=== PATIENT | male | born 1970 | race African-American/Black ===

== ENCOUNTER 2019-06-03 17:41 | Inpatient (IN) | payer OTHER, SELFPAY ==
[2019-06-03] VITALS (7 sets, daily range): BP systolic 147–164; BP diastolic 74–94; PULSE 121–139; RESP 20–23; TEMP 37.4–39.9; O2SAT 97–100; BMI 32.1
--- NOTE | ~2019-06-03 | CT_ITS ---
EXAMINATION: CT abdomen pelvis wo con DATE: 06/03/2019 20:24 INDICATION: Leukocytosis, fever and chills TECHNIQUE: Computed tomography (CT) of the abdomen and pelvis was performed without intravenous contr ast. The dose-length product (DLP) was 504.14 mGy-cm. Automated exposure control and iterative recons truction technique were employed. COMPARISON: None FINDINGS: Minimal dependent atelectasis is present in the lung bases. The heart size is normal. The l iver, spleen, pancreas, gallbladder, and left adrenal gland are normal. There are calcifications of t he right adrenal gland, likely reflecting prior trauma or hemorrhage. There is a 3 mm nonobstructing stone of the left kidney. Nonobstructing stones of the right kidney measure up to 2 mm. No stones are identified in the ureters or bladder. No pathologically enlarged abdominal or pelvic lymph nodes are identified. There is no free intraperitoneal gas or evidence of bowel obstruction. The appendix is n ormal. IMPRESSION: 1. No CT correlate for the patient's symptoms. Reviewed, dictated and finalized at location A. COLOGY SUPERVISOR
--- NOTE | ~2019-06-03 | XR_ITS ---
EXAMINATION: XR chest 2V DATE: 06/03/2019 18:54 INDICATION: Fever and chills TECHNIQUE: AP and lateral views of the chest are obtained. COMPARISON: None available FINDINGS: The lungs are free of acute opacities. There is no pleural effusion or pneumothorax. The ca rdiomediastinal silhouette is normal. The visualized bones and soft tissues are unremarkable. IMPRESSION: 1. No acute cardiopulmonary abnormality. Reviewed, dictated and finalized at location A. TING ENGINEER
[2019-06-03] MEDS: ACETAMINOPHEN 500 MG TABLET 1000 MG PO (18:11)
--- NOTE | 2019-06-03 18:13 | ECG_ITS ---
Measurements Intervals [place] Rate: 136 P: 26 WI: 88 QRS: 41 QRSD: 96 T: 35 QT: 262 QTc: 394 Interpretive Statements SINUS OR ECTOPIC ATRIAL TACHYCARDIA WITH SHORT WI INTERVAL CONSIDER INFERIOR INFARCT, AGE INDETERMINATE ABNORMAL ECG Electronically Signed On 06-03-2019 20:33:39 [employer] by Kem Maddox D.O.
[2019-06-03 18:42] LABS: Basophils Percent Auto 0.2 % (0.2-1.2); Hematocrit 43.1 % (42.0-52.0); Hemoglobin 14.2 g/dL (14.0-18.0); Immature Granulocyte Absolute 0.13 K/mm3 (0.00-0.031); Immature Granulocyte Percent A 0.8 % (0-0.5); Lymphocytes Absolute Auto 1.32 K/mm3 (0.9-3.2); Lymphocytes Percent Auto 8.1 % (18.3-44.2); Mean Corpuscular HGB Conc 32.9 g/dl (32-36); Mean Corpuscular Hemoglobin 30.5 pg (26-34); Mean Corpuscular Volume 92.5 fl (80-100); Mean Platelet Volume 10.4 fl (7.4-10.4); Monocytes Absolute Auto 1.4 K/mm3 (0.1-0.6); Monocytes Percent Auto 8.8 % (2.6-8.5); Neutrophils Absolute Auto 13.4 K/mm3 (1.3-6.7); Neutrophils Percent Auto 82.1 % (45.5-73.1); Platelet Count Result 274 k/mm3 (150-375); Red Blood Count 4.66 M/mm3 (4.6-6.20); Red Cell Distribution Width 12.8 % (11.5-14.5); White Blood Count 16.3 K/mm3 (4.5-10.0)
[2019-06-03 18:53] LABS: Lactic Acid Reflex 1.5 mmol/L (0.7-2.1)
[2019-06-03 19:24] LABS: INR 1.1; Partial Thromboplastin Time 26.4 SECONDS (22.3-36.8); Prothrombin Time 13.5 Seconds (11.1-14.7)
[2019-06-03 19:26] LABS: Alanine Aminotransferase 27 U/L (4-50); Albumin Level 4.6 g/dL (3.5-5.1); Alkaline Phosphatase 45 U/L (38-126); Aspartate Amino Transferase 26 U/L (17-59); Bilirubin,Total 0.3 mg/dL (0.2-1.3); Blood Urea Nitrogen 17 mg/dL (9-20); Calcium 9.6 mg/dL (8.4-10.2); Carbon Dioxide 25 mmol/L (22-30); Chloride 104 mmol/L (98-107); Estimated CRCL calculation 51 ml/min; Estimated Glomerular Filt Rate 56; Glucose 113 mg/dL (75-110); Potassium 4.3 mmol/L (3.4-5.0); Sodium 141 mmol/L (137-145)
--- NOTE | 2019-06-03 21:00 | ED.FEVER ---
HPI - Fever General Chief Complaint: Fever <Machelle Paula PA-C - Last Filed: 06/03/19 21:08> Stated Complaint: FEVER, CHILLS <Machelle Paula PA-C - Last Filed: 06/03/19 21:08> Time Seen by Provider: 06/03/19 17:55 <Machelle Paula PA-C - Last Filed: 06/03/19 21:08> Source: patient <Machelle Paula PA-C - Last Filed: 06/03/19 21:08> Mode of arrival: ambulatory <GINA Samayoa Last Filed: 06/03/19 21:08> Limitations: no limitations <GINA Samayoa Last Filed: 06/03/19 21:08> History of Present Illness HPI Narrative: Patient presents with chief complaint of fever, sore throat, diffuse abdominal pain and chills that began last night. Patient denies any known sick contacts. Patient denies cough, shortness of breath, chest pain, nausea, vomiting, diarrhea. Patient has not taken anything to alleviate his symptoms. Patient states he is not having much to eat or drink today. <GINA Samayoa Last Filed: 06/03/19 21:08> Related Data Allergies/Adverse Reactions: Allergies Allergy/AdvReac Type Severity Reaction Status Date / Time tramadol Allergy Unknown Verified 06/03/19 17:58 <Machelle Paula PA-C - Last Filed: 06/03/19 21:08> Review of Systems Review of Systems: Narrative: CONSTITUTIONAL: Reports fever, chills, or sweats. EYES: Denies visual changes, redness, or discharge. ENT: Reports sore throat denies rhinorrhea, congestion, or otalgia. CARDIOVASCULAR: Denies chest pain, palpitations, or edema. RESPIRATORY: Denies cough or dyspnea. GASTROINTESTINAL: Reports diffuse abdominal pain, denies nausea, vomiting, or diarrhea. GENITOURINARY: Denies dysuria or hematuria. SKIN: Denies rash or itching. MUSCULOSKELETAL: Denies back pain, joint pain, or myalgia. NEUROLOGIC: Denies headache, numbness, dizziness, or weakness. PSYCHIATRIC: Denies anxiety or depression. <Machelle Paula PA-C - Last Filed: 06/03/19 21:08> Exam Narrative: Exam Narrative: GENERAL: Well-appearing, well-nourished, and in no acute distress. Patient warm to touch. HEAD: Normocephalic, atraumatic. EYES: PERRLA and EOMI. ENT: Nares clear, no rhinorrhea or epistaxis. Mucous membranes moist. Oropharynx with tonsillar hypertrophy, no exudate or other lesions. Bilateral TMs pearly acosta nonbulging NECK: Supple. Mild bilateral tonsillar adenopathy CHEST: Clear to auscultation. No respiratory distress. No wheezes rales or rhonchi HEART: Regular rate and rhythm. No murmur heard. Normal peripheral pulses. ABDOMEN: Soft, nontender, nondistended, normal active bowel sounds. EXTREMITIES: Normal range of motion. No edema. SKIN: Warm, dry, no rash. NEURO: No focal deficits. Alert and oriented x3. PSYCH: Normal mood and affect. <Machelle Paula PA-C - Last Filed: 06/03/19 21:08> Course ABSTRACT SEARCHER/PA Physician Supervision For this patient encounter, I reviewed the ABSTRACT SEARCHER or PA documentation, treatment plan, and medical decision making; and I had [id number] time with this patient. <Alta Reed MD - Last Filed: 06/03/19 22:06> Vital Signs Vital signs: Vital Signs Temperature 39.9 C H 06/03/19 17:52 Pulse Rate 139 H 06/03/19 17:52 Respiratory Rate 20 06/03/19 17:52 Blood Pressure 164/92 H 06/03/19 17:52 Pulse Oximetry 98 06/03/19 17:52 Temperature 39.6 C H 06/03/19 19:43 Pulse Rate 121 H 06/03/19 21:49 Respiratory Rate 22 H 06/03/19 19:03 Blood Pressure 149/89 H 06/03/19 21:49 Pulse Oximetry 100 06/03/19 21:49 <Machelle Paula PA-C - Last Filed: 06/03/19 21:08> Vital Signs Temperature 39.9 C H 06/03/19 17:52 Pulse Rate 139 H 06/03/19 17:52 Respiratory Rate 20 06/03/19 17:52 Blood Pressure 164/92 H 06/03/19 17:52 Pulse Oximetry 98 06/03/19 17:52 Temperature 39.6 C H 06/03/19 19:43 Pulse Rate 121 H 06/03/19 21:49 Respiratory Rate 22 H 06/03/19 19:03 Blood Pressure 149/89 H 06/03/19 21:49 Pulse Oximetry 100 06/03/19 21:49
[2019-06-03] MEDS: IBUPROFEN 600 MG TABLET PO (21:22)
--- NOTE | 2019-06-03 22:28 | ADMGEN ---
This patient, Freeman Simeon, was admitted to Medical Room 250-01. Patient/family oriented to hospital policies and general routines including ID bracelet, bed and alarms, visiting hours, pain management, procedures, bathroom and other care routines, personal items, smoking policy, room service/diet, and visiting hours. Valuables list has been completed. Information on how to activate the Rapid Response Team has been discussed. Patient/Family are encouraged to report perceived risks to care and to ask questions if they do not understand what they are told or what they should do.
[2019-06-03] MEDS: SODIUM CHLORIDE 0.9% IV 1,000 ML 150 ML IV CONT (23:57)
[2019-06-04] VITALS (9 sets, daily range): BP systolic 122–141; BP diastolic 68–79; PULSE 101–124; RESP 18–20; TEMP 36.6–37.6; O2SAT 95–99
[2019-06-04 05:30] LABS: Basophils Percent Auto 0.2 % (0.2-1.2); Eosinophils Percent Auto 0.1 % (0-4.4); Hematocrit 37.1 % (42.0-52.0); Hemoglobin 11.8 g/dL (14.0-18.0); Immature Granulocyte Absolute 0.12 K/mm3 (0.00-0.031); Lymphocytes Absolute Auto 1.05 K/mm3 (0.9-3.2); Lymphocytes Percent Auto 8.3 % (18.3-44.2); Mean Corpuscular HGB Conc 31.8 g/dl (32-36); Mean Corpuscular Hemoglobin 29.8 pg (26-34); Mean Corpuscular Volume 93.7 fl (80-100); Mean Platelet Volume 9.9 fl (7.4-10.4); Monocytes Absolute Auto 1.5 K/mm3 (0.1-0.6); Monocytes Percent Auto 11.6 % (2.6-8.5); Neutrophils Percent Auto 78.8 % (45.5-73.1); Platelet Count Result 212 k/mm3 (150-375); Red Blood Count 3.96 M/mm3 (4.6-6.20); Red Cell Distribution Width 12.9 % (11.5-14.5); White Blood Count 12.6 K/mm3 (4.5-10.0)
[2019-06-04 05:43] LABS: Blood Urea Nitrogen 14 mg/dL (9-20); Calcium 8.1 mg/dL (8.4-10.2); Carbon Dioxide 23 mmol/L (22-30); Chloride 109 mmol/L (98-107); Estimated CRCL calculation 63 ml/min; Estimated Glomerular Filt Rate > 60; Glucose 104 mg/dL (75-110); Sodium 140 mmol/L (137-145)
[2019-06-04] MEDS: ALPRAZOLAM 0.25 MG TABLET PO ×3 (05:56→17:09)
[2019-06-04] MEDS: SUCRALFATE 1 GM TABLET PO ×3 (06:13→17:09)
[2019-06-04] MEDS: SODIUM CHLORIDE 0.9% IV 1,000 ML 150 ML IV CONT ×3 (06:18→21:30)
[2019-06-04] MEDS: FAMOTIDINE 20 MG TABLET 40 MG PO (08:22)
[2019-06-04] MEDS: ATORVASTATIN 10 MG TABLET PO (08:22)
[2019-06-04] MEDS: LORATADINE 10 MG TABLET PO (08:23)
[2019-06-04] MEDS: GABAPENTIN 300 MG CAPSULE PO ×3 (08:23→17:08)
[2019-06-04] MEDS: ENOXAPARIN 40 MG/0.4 ML SYRINGE SUB-Q (08:23)
[2019-06-04] MEDS: metFORMIN HCL 500 MG TABLET 1000 MG PO ×2 (08:23→17:08)
--- NOTE | 2019-06-04 08:55 | PM.IMHP ---
H&P: HPI History of Present Illness Chief complaint: strep pharyngitis with sepsis/fever/tacycardia Narrative: DOS 06/04/19: Freeman Simeon is a 48 year old male with history of anxiety, DMII, and HLD who presented to the ER yesterday with complaints of sore throat, subjective fever/chills, lightheadedness, and diffuse abdominal pain since Saturday. Patient states he started feeling woozy and lightheaded on Saturday while shopping and then was told he was grumpy by his . He reports associated fevers/chills, headaches, malaise, as well, as diffuse abdominal pain although he tells me it hurts more near his right groin where he had a hernia repaired. He has had some nausea today without vomiting. He notes a sore throat to where he does not want to eat, with no cough. He had a racing heart prior to admission as well. He has some soreness around his anterior neck under his chin line, as well. He has associated headaches as well. He took tylenol and liquid Ibuprofen both with little relief at home. Denies any sick contacts at home, recent travel, or any recent medication changes. He has an allergy to tramadol to where his throat swells up where he can't breathe. He had BM yesterday that was non-bloody, non-melenic. He denies acute changes in vision/hearing, loss of appetite, chest pain, palpitations, SOB, cough, congestion, v/d/c, dysuria, hematuria, s/sx of stroke, calf pain/swelling. Review of Systems Review of Systems: All systems reviewed & are unremarkable except as noted in HPI and below PMFSH Past Medical History Medical History (Updated 06/04/19 @ 09:25 by Abdi France PA-C) Anxiety DMII (diabetes mellitus, type 2) Ganglion cyst of dorsum of right wrist GERD (gastroesophageal reflux disease) HLD (hyperlipidemia) Inguinal hernia of left side without obstruction or gangrene Inguinal hernia of right side without obstruction or gangrene Peripheral neuropathy Urticaria Surgical History Surgical History (Updated 06/04/19 @ 09:25 by Abdi France PA-C) H/O arthroscopy of left knee H/O right inguinal hernia repair History of ear surgery Right side; tympanic membrane History of surgical removal of ganglion cyst History of tonsillectomy Family History Family History (Updated 06/04/19 @ 09:26 by Abdi France PA-C) Mother Diabetes mellitus Colon cancer Father Diabetes mellitus Sibling Colon cancer Social History Social History (Updated 06/04/19 @ 09:28 by Abdi France PA-C) Social History: Patient lives at home with his , Cinda Simeon, whom he designates as his surrogate medical decision maker. He also lives with his grandson at home. His PCP is Dr. Cadena. He wishes to be a Full code Smoking status: Former smoker Tobacco type: cigars Smoking end date: 06/17/18 Alcohol intake: current Drinks per week: 4 Substance use: never Additional occupation/education comments: Patient takes care of his grandchildren at home Spiritual care concerns: No Agree to blood products: Yes Meds Home Medications and Allergies Home Medications Medication Instructions Recorded Confirmed Type alprazolam 0.25 mg PO BID 06/04/19 06/04/19 History atorvastatin 10 mg PO DAILY 06/04/19 06/04/19 History fenofibrate 160 mg PO DAILY 06/04/19 06/04/19 History gabapentin 300 mg PO TID 06/04/19 06/04/19 History loratadine 10 mg PO DAILY 06/04/19 06/04/19 History metformin 1,000 mg PO BID 06/04/19 06/04/19 History ranitidine HCl 300 mg PO DAILY 06/04/19 06/04/19 History sucralfate 1 g PO AC 06/04/19 06/04/19 History Allergies Allergy/AdvReac Type Severity Reaction Status Date / Time tramadol Allergy swollen Verified 06/04/19 09:28 throat Vital Signs Vital Signs - 24 hr 06/03/19 17:52 06/03/19 18:13 06/03/19 19:03 Temperature 103.8 F H Pulse Rate 139 H 131 H 138 H Respiratory Rate 20 23 H 22 H Blood Pressure 164/92 H 147/94 H Pulse Oximetry 98 98 97
[2019-06-04] MEDS: BISACODYL 5 MG TABLET EC PO (09:29)
[2019-06-04 13:15] LABS: Glucose Point of Care 75 (65-105)
[2019-06-04] MEDS: ACETAMINOPHEN 325 MG TABLET 650 MG PO (14:44)
[2019-06-04] MEDS: FENOFIBRATE 160 MG TABLET PO (17:09)
[2019-06-04 18:33] LABS: Glucose Point of Care 89 (65-105)
[2019-06-05] VITALS (9 sets, daily range): BP systolic 132–138; BP diastolic 67–85; PULSE 93–108; RESP 18; TEMP 36.1–37.3; O2SAT 93–98
[2019-06-05 02:48] LABS: Glucose Point of Care 92 (65-105)
[2019-06-05] MEDS: SODIUM CHLORIDE 0.9% IV 1,000 ML 150 ML IV CONT ×3 (04:40→17:56)
[2019-06-05 05:33] LABS: Basophils Percent Auto 0.2 % (0.2-1.2); Eosinophils Absolute Auto 0.1 K/mm3 (0-0.3); Eosinophils Percent Auto 0.5 % (0-4.4); Hematocrit 35.1 % (42.0-52.0); Hemoglobin 11.4 g/dL (14.0-18.0); Immature Granulocyte Absolute 0.04 K/mm3 (0.00-0.031); Immature Granulocyte Percent A 0.4 % (0-0.5); Lymphocytes Absolute Auto 1.65 K/mm3 (0.9-3.2); Lymphocytes Percent Auto 17.6 % (18.3-44.2); Mean Corpuscular HGB Conc 32.5 g/dl (32-36); Mean Corpuscular Hemoglobin 30.2 pg (26-34); Mean Corpuscular Volume 92.9 fl (80-100); Mean Platelet Volume 10.1 fl (7.4-10.4); Monocytes Absolute Auto 1.4 K/mm3 (0.1-0.6); Monocytes Percent Auto 14.8 % (2.6-8.5); Neutrophils Absolute Auto 6.3 K/mm3 (1.3-6.7); Neutrophils Percent Auto 66.5 % (45.5-73.1); Platelet Count Result 220 k/mm3 (150-375); Red Blood Count 3.78 M/mm3 (4.6-6.20); Red Cell Distribution Width 12.6 % (11.5-14.5); White Blood Count 9.4 K/mm3 (4.5-10.0)
[2019-06-05 05:43] LABS: Alanine Aminotransferase 18 U/L (4-50); Albumin Level 3.5 g/dL (3.5-5.1); Alkaline Phosphatase 36 U/L (38-126); Aspartate Amino Transferase 19 U/L (17-59); Bilirubin,Total 0.2 mg/dL (0.2-1.3); Blood Urea Nitrogen 11 mg/dL (9-20); Calcium 8.5 mg/dL (8.4-10.2); Carbon Dioxide 24 mmol/L (22-30); Chloride 109 mmol/L (98-107); Estimated CRCL calculation 63 ml/min; Estimated Glomerular Filt Rate > 60; Glucose 101 mg/dL (75-110); Sodium 141 mmol/L (137-145)
[2019-06-05] MEDS: SUCRALFATE 1 GM TABLET PO ×3 (06:58→17:46)
[2019-06-05] MEDS: metFORMIN HCL 500 MG TABLET 1000 MG PO (08:17)
[2019-06-05] MEDS: FAMOTIDINE 20 MG TABLET 40 MG PO (08:18)
[2019-06-05] MEDS: GABAPENTIN 300 MG CAPSULE PO ×3 (08:18→17:46)
[2019-06-05] MEDS: ENOXAPARIN 40 MG/0.4 ML SYRINGE SUB-Q (08:18)
[2019-06-05] MEDS: BISACODYL 5 MG TABLET EC PO (08:20)
[2019-06-05] MEDS: ATORVASTATIN 10 MG TABLET PO (08:20)
[2019-06-05] MEDS: LORATADINE 10 MG TABLET PO (08:20)
[2019-06-05] MEDS: ALPRAZOLAM 0.25 MG TABLET PO ×2 (08:24→17:56)
[2019-06-05 09:04] LABS: Glucose Point of Care 126 (65-105)
--- NOTE | 2019-06-05 09:29 | PM.IMPN ---
Progress Note: A&P Assessment and Plan (1) Sepsis: Qualifiers: Sepsis acute organ dysfunction status: with acute organ dysfunction Sepsis type: Streptococcus, other Severe sepsis acute organ dysfunction type: unspecified Severe sepsis shock status: without septic shock Qualified Code(s): A40.8 - Other streptococcal sepsis; R65.20 - Severe sepsis without septic shock Code(s): A41.9 - Sepsis, unspecified organism Status: Acute Assessment and Plan: Tachycardia, leukocytosis, temp 103 in ER likely source is strep pharyngitis. Diff diagnosis of source cellulitis vs viral vs pneumonia although all less likely. Diff diagnosis for chest pain/tachycardia is PE, although very low; will obtain d-dimer to rule out; consider VQ scan due to Cr elevated if d-dimer positive Acute renal insufficiency as well with Cr to 1.60 in ER, up from 1.3 in 07/2018 Temp is improving, as well as tachycardia, although still present overnight and today despite IVF. WBC WNL today IVF hydration, IV ceftriaxone, monitor closely (2) Acute streptococcal pharyngitis: Code(s): J02.0 - Streptococcal pharyngitis Status: Acute Assessment and Plan: Patient has a Centor Score of 2; Strep swab positive in ER; Blood cultures negative to date Likely etiology of symptoms, source for sepsis IVF, IV ceftriaxone; switched patient to PO penicillin V BID today. Patient denies allergy to penicillin. Due to history of urticaria and prone to allergies, benadryl ordered for possible reaction with instructions to call if anaphylaxis; consider epinephrine first before benadryl if this were to happen with penicillin. Monitor closely (3) Acute renal insufficiency: Code(s): N28.9 - Disorder of kidney and ureter, unspecified Status: Acute Assessment and Plan: Patient Cr is at 1.50 today, stable, but not back to baseline. Baseline appears to be 1.30 from EMR. Likely secondary to sepsis. Continue IVF hydration; consider slowing tomorrow Trend Cr tomorrow Will hold metformin and statin (4) HLD (hyperlipidemia): Code(s): E78.5 - Hyperlipidemia, unspecified Status: Acute Assessment and Plan: No acute issues, hold statin due to renal function for now. Monitor (5) DMII (diabetes mellitus, type 2): Code(s): E11.9 - Type 2 diabetes mellitus without complications Status: Acute Assessment and Plan: A1c 6.0. Uses metformin at home; held todayl. BGL in 70s- low 100s Continue accuchecks achs, diabetic diet, hypoglycemia protocol, low corrective insulin regimen (6) Anxiety: Code(s): F41.9 - Anxiety disorder, unspecified Status: Acute Assessment and Plan: No acute issues, continue home medications. Monitor (7) Peripheral neuropathy: Code(s): G62.9 - Polyneuropathy, unspecified Status: Acute Assessment and Plan: No acute issues, continue home medications. Monitor (8) GERD (gastroesophageal reflux disease): Code(s): K21.9 - Gastro-esophageal reflux disease without esophagitis Status: Acute Assessment and Plan: No acute issues, continue home medications. Monitor (9) Urticaria: Code(s): L50.9 - Urticaria, unspecified Status: Acute Assessment and Plan: No acute issues, continue home medications. Monitor Subjective Date/time seen: 06/05/19 09:29 Interval history: Patient is a 48 year old male with history of anxiety, DMII, and HLD who is here for strep pharyngitis meeting sepsis criteria. Patient is feeling okay today, but complains of a sore throat and a constant headache.
[2019-06-05] MEDS: ACETAMINOPHEN/ASPIRIN/CAFFEINE 250-250-65 MG TABLET 1 TABLET PO (09:59)
[2019-06-05] MEDS: BENZOCAINE/MENTHOL (*BKC) 18 EA LOZENGE 1 LOZENGE PO (09:59)
[2019-06-05] MEDS: PENICILLIN V POTASSIUM 250 MG TABLET 500 MG PO ×2 (10:00→17:47)
[2019-06-05 10:43] LABS: D Dimer 0.53 ug/mL (<0.48)
[2019-06-05 12:44] LABS: Glucose Point of Care 90 (65-105)
[2019-06-05] MEDS: FENOFIBRATE 160 MG TABLET PO (17:47)
[2019-06-05 18:05] LABS: Glucose Point of Care 97 (65-105)
[2019-06-05 21:39] LABS: Glucose Point of Care 106 (65-105)
[2019-06-06] VITALS: PULSE 87
[2019-06-06] MEDS: SODIUM CHLORIDE 0.9% IV 1,000 ML 150 ML IV CONT ×2 (00:58→07:16)
[2019-06-06 04:00] VITALS: PULSE 93
[2019-06-06 05:03] LABS: Hematocrit 35.4 % (42.0-52.0); Hemoglobin 11.6 g/dL (14.0-18.0); Mean Corpuscular HGB Conc 32.8 g/dl (32-36); Mean Corpuscular Hemoglobin 30.1 pg (26-34); Mean Corpuscular Volume 91.9 fl (80-100); Platelet Count Result 257 k/mm3 (150-375); Red Blood Count 3.85 M/mm3 (4.6-6.20); Red Cell Distribution Width 12.5 % (11.5-14.5); White Blood Count 5.3 K/mm3 (4.5-10.0)
[2019-06-06 05:19] LABS: Blood Urea Nitrogen 12 mg/dL (9-20); Calcium 8.8 mg/dL (8.4-10.2); Carbon Dioxide 25 mmol/L (22-30); Chloride 110 mmol/L (98-107); Estimated CRCL calculation 67 ml/min; Estimated Glomerular Filt Rate > 60; Glucose 102 mg/dL (75-110); Sodium 142 mmol/L (137-145)
[2019-06-06] MEDS: SUCRALFATE 1 GM TABLET PO ×2 (05:42→12:01)
[2019-06-06 06:00] VITALS: BP 135/85; PULSE 85; RESP 16; TEMP 37.1; O2SAT 97
[2019-06-06] MEDS: ACETAMINOPHEN/ASPIRIN/CAFFEINE 250-250-65 MG TABLET 1 TABLET PO (07:17)
[2019-06-06 08:00] VITALS: PULSE 101
--- NOTE | 2019-06-06 08:22 | PM.DS ---
DS: Diagnosis Admitting Diagnosis Admitting Diagnosis: Other streptococcal sepsis Discharge Diagnosis (1) Sepsis: Qualifiers: Sepsis acute organ dysfunction status: with acute organ dysfunction Sepsis type: Streptococcus, other Severe sepsis acute organ dysfunction type: unspecified Severe sepsis shock status: without septic shock Qualified Code(s): A40.8 - Other streptococcal sepsis; R65.20 - Severe sepsis without septic shock Code(s): A41.9 - Sepsis, unspecified organism Status: Acute Assessment and Plan: Tachycardia, leukocytosis, temp 103 in ER with likely source as strep pharyngitis. Diff diagnosis of source includes cellulitis vs viral vs pneumonia although all less likely. Diff diagnosis for chest pain/tachycardia is PE, although very low; D-dimer yesterday was mildly elevated, tachycardia and chest pain has now resolved; unlikely PE picture although instructed patient to present to ER if symptoms worsen. HR in 80s this morning, afebrile, improving clinically, leukocytosis resolved Acute renal insufficiency as well with Cr to 1.60 in ER, up from 1.3 in 07/2018; Cr 1.40 today which is improving IVF hydration, IV ceftriaxone switched to PO Penicillin yesterday after 2 doses. Will send home with PO penicillin to complete 10 day course of antibiotics for treatment of Strep pharyngitis. (2) Acute streptococcal pharyngitis: Code(s): J02.0 - Streptococcal pharyngitis Status: Acute Assessment and Plan: Patient has a Centor Score of 2; Strep swab positive in ER; Blood cultures negative to date Likely etiology of symptoms, source for sepsis IVF, IV ceftriaxone; switched patient to PO penicillin V BID yesterday. No allergic reactions reported. Will send home with PO penicillin V Q12 to complete a 10 day course of antibiotics. F/u with primary within 2 weeks (3) Acute renal insufficiency: Code(s): N28.9 - Disorder of kidney and ureter, unspecified Status: Acute Assessment and Plan: Patient Cr is at 1.40 today, stable, but not back to baseline. Baseline appears to be 1.30 from EMR. Likely secondary to sepsis. Will hold metformin and statin and have patient resume tomorrow. Will order BMP for 1 week with results to be sent to his primary (4) HLD (hyperlipidemia): Code(s): E78.5 - Hyperlipidemia, unspecified Status: Acute Assessment and Plan: No acute issues, hold statin due to renal function. Will have patient resume tomorrow (5) DMII (diabetes mellitus, type 2): Code(s): E11.9 - Type 2 diabetes mellitus without complications Status: Acute Assessment and Plan: A1c 6.0. Uses metformin at home; held yesterday; BGL well controlled Will have patient resume metformin tomorrow with BMP to be done next week with results sent to his primary (6) Anxiety: Code(s): F41.9 - Anxiety disorder, unspecified Status: Acute Assessment and Plan: No acute issues, continue home medications. (7) Peripheral neuropathy: Code(s): G62.9 - Polyneuropathy, unspecified Status: Acute Assessment and Plan: No acute issues, continue home medications. (8) GERD (gastroesophageal reflux disease): Code(s): K21.9 - Gastro-esophageal reflux disease without esophagitis Status: Acute Assessment and Plan: No acute issues, continue home medications. (9) Urticaria: Code(s): L50.9 - Urticaria, unspecified Status: Acute Assessment and Plan: No acute issues, continue home medications. DS: Summary Hospital Course Reason for hospitalization: sore th
[2019-06-06] MEDS: ALPRAZOLAM 0.25 MG TABLET PO (08:26)
[2019-06-06] MEDS: FAMOTIDINE 20 MG TABLET 40 MG PO (08:27)
[2019-06-06] MEDS: PENICILLIN V POTASSIUM 250 MG TABLET 500 MG PO (08:27)
[2019-06-06] MEDS: GABAPENTIN 300 MG CAPSULE PO ×2 (08:27→12:02)
[2019-06-06] MEDS: ENOXAPARIN 40 MG/0.4 ML SYRINGE SUB-Q (08:28)
[2019-06-06] MEDS: LORATADINE 10 MG TABLET PO (08:28)
[2019-06-06 09:13] LABS: Glucose Point of Care 104 (65-105)
[2019-06-06 12:11] LABS: Glucose Point of Care 101 (65-105)
== END 2019-06-06 13:30 | disposition home or self-care (01) | DRG 720 ==
LOC: ANHED 21:07 → ANH3MED 21:11 → ANH2MED 22:06
PROVIDERS: Physician Assistant; Admitting Provider Internal Medicine; Emergency Provider Emergency Medicine; PCP Internal Medicine Infectious Disease; Visit Provider Family Medicine
DX: A40.8 Other streptococcal sepsis (principal); J02.0 Streptococcal pharyngitis; E11.9 Type 2 diabetes mellitus without complications; K21.9 Gastro-esophageal reflux disease without esophagitis; E78.5 Hyperlipidemia, unspecified; F41.9 Anxiety disorder, unspecified; G62.9 Polyneuropathy, unspecified
CPT/HCPCS: 36415; 71046; 74176; 80048; 80053; 83036; 83605; 85025; 85027; 85380; 85610; 85730; 87040; 87804; 87880; 93005; 96361; 96365; 96366; 96372; 99285; A9270; G0378; G0379; J0696; J1650; J7030

== ENCOUNTER 2019-06-16 15:44 | Outpatient (RCR) | payer OTHER, SELFPAY | END 2019-06-16 23:59 | disposition home or self-care (01) | LOC: ANHAUDIO 15:44 | PROVIDERS: PCP Internal Medicine Infectious Disease; Visit Provider Internal Medicine Infectious Disease | DX: Z46.1 Encounter for fitting and adjustment of hearing aid (principal) | CPT/HCPCS: V5160; V5261 ==

== ENCOUNTER 2020-10-24 16:59 | Emergency (ER) | payer OTHER, SELFPAY ==
[2020-10-24 17:10] VITALS: BP 133/82; PULSE 86; RESP 16; TEMP 36.4; O2SAT 99
--- NOTE | 2020-10-24 17:53 | ED.BACK ---
HPI - Back Pain/Injury General Chief Complaint: Back Pain/Injury Stated Complaint: back pain Time Seen by Provider: 10/24/20 17:35 Source: patient and RN notes reviewed Mode of arrival: ambulatory Limitations: no limitations History of Present Illness HPI Narrative: Patient presents today complaining of back pain since yesterday morning. He bent at the waist to pick pulling machine tender a 60 pound grandchild, felt a pop in his back. He has been experiencing midline back pain since that time that he currently rates an 8/10. He has taken his 's [place], baclofen without relief. He does have diabetic neuropathy, but states he is experiencing more numbness and tingling in his legs than normal. He is also experiencing numbness and tingling in his genitals that is new. He does state that he is feeling weak in both of his legs. This is a new finding as well. Denies any loss of bowel or bladder control. MD elicited complaint: back pain and back injury Related Data Home Medications Medication Instructions Recorded Confirmed alprazolam 0.25 mg PO BID 06/04/19 06/04/19 atorvastatin 10 mg PO DAILY 06/04/19 06/04/19 fenofibrate 160 mg PO DAILY 06/04/19 06/04/19 gabapentin 300 mg PO TID 06/04/19 06/04/19 loratadine 10 mg PO DAILY 06/04/19 06/04/19 metformin 1,000 mg PO BID 06/04/19 06/04/19 ranitidine HCl 300 mg PO DAILY 06/04/19 06/04/19 sucralfate 1 g PO AC 06/04/19 06/04/19 Allergies Allergy/AdvReac Type Severity Reaction Status Date / Time tramadol Allergy Unknown Swelling Verified 04/22/20 15:43 Review of Systems Review of Systems: Narrative: CONSTITUTIONAL: Denies body aches, fever, chills, or sweats. EYES: Denies visual changes, redness, or discharge. ENT: Denies rhinorrhea, congestion, sore throat, or otalgia. CARDIOVASCULAR: Denies chest pain, palpitations, or edema. RESPIRATORY: Denies cough or dyspnea. GASTROINTESTINAL: Denies abdominal pain, nausea, vomiting, or diarrhea. GENITOURINARY: Denies dysuria or hematuria. SKIN: Denies rash, itching, or wounds. MUSCULOSKELETAL: Denies joint pain, or myalgia. + Back pain and injury NEUROLOGIC: Denies headache. + Bilateral leg weakness, numbness and tingling in the bilateral legs, and genitals PSYCH: Denies depression or anxiety. COUNTS INCLUDE 234 BEDS AT [facility] Past Medical History Medical History Anxiety DMII (diabetes mellitus, type 2) Ganglion cyst of dorsum of right wrist GERD (gastroesophageal reflux disease) HLD (hyperlipidemia) Inguinal hernia of left side without obstruction or gangrene Inguinal hernia of right side without obstruction or gangrene Peripheral neuropathy Urticaria Surgical History Surgical History H/O arthroscopy of left knee H/O right inguinal hernia repair History of ear surgery Right side; tympanic membrane History of surgical removal of ganglion cyst History of tonsillectomy Family History Family History Mother Diabetes mellitus Colon cancer Father Diabetes mellitus Sibling Colon cancer Social History Social History Social History: Patient lives at home with his , Cinda Simeon, whom he designates as his surrogate medical decision maker. He also lives with his grandson at home. His PCP is Dr. Cadena. He wishes to be a Full code Smoking status: Former smoker Tobacco type: cigars Smoking end date: 06/17/18 Alcohol intake: current Drinks per week: 4 Substance use: never Additional occupation/education comments: Patient takes care of his grandchildren at home Spiritual care concerns: No Agree to blood products: Yes Comments At time of signature, I have reviewed and agree with nursing past medical, surgical, social and family history unless otherwise noted. Please see nursing chart for further information
== END 2020-10-24 18:00 | disposition short-term general hospital (02) ==
PROVIDERS: Emergency Provider Nurse Practitioner; PCP Internal Medicine
DX: M54.5 Low back pain (principal); M62.81 Muscle weakness (generalized); Z87.891 Personal history of nicotine dependence; D41.9 Neoplasm of uncertain behavior of unspecified urinary organ; K21.9 Gastro-esophageal reflux disease without esophagitis; E78.5 Hyperlipidemia, unspecified; E11.42 Type 2 diabetes mellitus with diabetic polyneuropathy
CPT/HCPCS: 99212; G0463

== ENCOUNTER 2021-08-07 12:24 | Emergency (ER) | payer OTHER, SELFPAY ==
[2021-08-07 12:51] VITALS: BP 127/87; PULSE 110; RESP 15; TEMP 36.6; O2SAT 99
[2021-08-07 14:58] VITALS: BP 127/83; PULSE 107; RESP 20; TEMP 36.7; O2SAT 97
[2021-08-07] MEDS: KETOROLAC (*BKC) 60 MG/2 ML VIAL IM (15:41)
[2021-08-07 15:52] LABS: Glucose Point of Care 100 mg/dl (65-105)
[2021-08-07 16:11] VITALS: TEMP 36.7
--- NOTE | 2021-08-07 16:34 | ED.GENADULT ---
HPI - General Adult General Chief complaint: Back Pain/Injury Stated complaint: back aches, throat pain Time Seen by Provider: 08/07/21 15:08 Source: patient and RN notes reviewed Mode of arrival: ambulatory Limitations: no limitations History of Present Illness HPI narrative: This is a 50 year old male with history of Diabetes Mellitus who presents for evaluation of URI symptoms. Patient developed sore throat, runny nose, fever, chills on Saturday. He was evaluated at an Urgent care on Saturday. He states he was only tested for covid and his rapid test was negative. He reports having fever 2 days ago but he is unsure if he had fever since. He has not taken any medication for his symptoms at all. He reports pain with swallowing and bad taste in his mouth. He denies chest pain, vomiting, shortness of breath. He does report diarrhea. His grandchildren had an viral illness last week but their symptoms resolved after 24 hours. He has received his covid vaccination and booster. Related Data Home Medications Medication Instructions Recorded Confirmed atorvastatin 10 mg PO DAILY 06/04/19 07/17/21 metformin 1,000 mg PO BID 06/04/19 07/17/21 amitriptyline 50 mg PO DAILY 10/24/20 07/17/21 blood sugar diagnostic [OneTouch 10/24/20 07/17/21 Ultra Blue Test Strip] ezetimibe 10 mg PO DAILY 10/24/20 07/17/21 gabapentin 600 mg PO BID 10/24/20 07/17/21 meloxicam 7.5 mg PO PRN PRN 10/24/20 07/17/21 Allergies Allergy/AdvReac Type Severity Reaction Status Date / Time tramadol Allergy Severe Anaphylaxis Verified 07/17/21 14:33 Review of Systems Review of Systems: All systems reviewed & are unremarkable except as noted in HPI and below Constitutional: Constitutional: Reports chills and Reports fever(s) ENT: Reports nasal congestion and Reports sore throat Cardiovascular: Cardiovascular: Denies chest pain Respiratory: Respiratory: Denies chest congestion, Denies cough and Denies dyspnea Gastrointestinal: Gastrointestinal: Denies abdominal pain, Reports diarrhea and Denies nausea Genitourinary: Genitourinary: Denies oliguria, Denies dysuria and Denies urinary frequency Musculoskeletal: Musculoskeletal: Reports back pain Neurologic: Reports headache(s) [facility] Past Medical History Medical History Anxiety DMII (diabetes mellitus, type 2) Ganglion cyst of dorsum of right wrist GERD (gastroesophageal reflux disease) HLD (hyperlipidemia) Inguinal hernia of left side without obstruction or gangrene Inguinal hernia of right side without obstruction or gangrene Peripheral neuropathy Urticaria Surgical History Surgical History H/O arthroscopy of left knee H/O right inguinal hernia repair History of ear surgery Right side; tympanic membrane History of surgical removal of ganglion cyst History of tonsillectomy Family History Family History Mother Diabetes mellitus Colon cancer Father Diabetes mellitus Sibling Colon cancer Social History Social History Social History: Patient lives at home with his , Cinda Simeon, whom he designates as his surrogate medical decision maker. He also lives with his grandson at home. His PCP is Dr. Cadena. He wishes to be a Full code Smoking status: Never smoker Tobacco type: cigars Smoking end date: 06/17/18 Alcohol intake: current Drinks per week: 4 Substance use: never Additional occupation/education comments: Patient takes care of his grandchildren at home Gender identity (if verbalized by the patient): Male Spiritual care concerns: No Agree to blood products: Yes Exam Const: General: no acute distress and alert Orientation/consciousness: patient oriented x3 HENMT: Head: normocephalic and atraumatic Ears: external
[2021-08-07 16:52] LABS: SARS-CoV-2 RNA PCR Negative
[2021-08-07 17:04] VITALS: BP 125/81; PULSE 106; RESP 18; O2SAT 98
== END 2021-08-07 17:05 | disposition home or self-care (01) ==
PROVIDERS: Emergency Provider General Practice; PCP Internal Medicine
DX: J02.9 Acute pharyngitis, unspecified (principal); Z20.822 Contact with and (suspected) exposure to COVID-19; E78.5 Hyperlipidemia, unspecified; E11.42 Type 2 diabetes mellitus with diabetic polyneuropathy; Z87.891 Personal history of nicotine dependence; K21.9 Gastro-esophageal reflux disease without esophagitis; Z79.84 Long term (current) use of oral hypoglycemic drugs
CPT/HCPCS: 82948; 87081; 87804; 87880; 96372; 99283; C9803; J1885; U0003; U0005

== ENCOUNTER 2021-09-14 13:05 | Outpatient (CLI) | payer OTHER, SELFPAY | END 2021-09-14 13:06 | disposition home or self-care (01) | LOC: ANHAUDIO 13:08 | PROVIDERS: PCP Internal Medicine; Visit Provider Otolaryngology | DX: H66.91 Otitis media, unspecified, right ear (principal) | CPT/HCPCS: 92557; 92567 ==

== ENCOUNTER 2021-12-30 12:23 | Emergency (ER) | payer OTHER, SELFPAY ==
--- NOTE | ~2021-12-30 | XR_ITS ---
XR chest 2V DATE: 12/30/2021 12:50 INDICATION: Right-sided stabbing chest pain TECHNIQUE: PA and lateral views COMPARISON: 06/03/2019 AP and lateral chest FINDINGS: Normal heart size. No hilar or mediastinal enlargement. No pulmonary infiltrate or consolid ation, pleural effusion or pulmonary venous congestion. No pneumothorax or pneumomediastinum is evide nt. Normal heart size. No hilar or mediastinal enlargement. Minimal dextroscoliosis of the thoracic spine. IMPRESSION: No active cardiopulmonary disease Reviewed, dictated and finalized at location A.
--- NOTE | 2021-12-30 12:24 | ECG_ITS ---
Measurements Intervals [place] Rate: 93 P: 59 ID: 118 QRS: 56 QRSD: 85 T: 36 QT: 334 QTc: 417 Interpretive Statements SINUS RHYTHM WITH SHORT ID INTERVAL ST ELEVATION IN ANTEROLAT/HIGH LAT LEADS- PROBABLY EARLY REPOLARIZATION ABNORMALITY BORDERLINE ECG Electronically Signed On 12-30-2021 15:24:04 CDT by Kem Maddox D.O.
[2021-12-30 12:36] VITALS: BP 144/87; PULSE 98; RESP 20; O2SAT 98
[2021-12-30 12:43] VITALS: PULSE 98
[2021-12-30 12:45] VITALS: O2SAT 98
[2021-12-30 12:47] LABS: Basophils Percent Auto 0.4 % (0.2-1.2); Eosinophils Absolute Auto 0.1 K/mm3 (0-0.3); Eosinophils Percent Auto 2.6 % (0-4.4); Hematocrit 42.2 % (42.0-52.0); Hemoglobin 14.8 g/dL (14.0-18.0); Immature Granulocyte Absolute 0.01 K/mm3 (0.00-0.031); Immature Granulocyte Percent A 0.2 % (0-0.5); Lymphocytes Absolute Auto 1.57 K/mm3 (0.9-3.2); Lymphocytes Percent Auto 34.5 % (18.3-44.2); Mean Corpuscular HGB Conc 35.1 g/dl (32-36); Mean Corpuscular Hemoglobin 30.9 pg (26-34); Mean Corpuscular Volume 88.1 fl (80-100); Mean Platelet Volume 10.2 fl (7.4-10.4); Monocytes Absolute Auto 0.5 K/mm3 (0.1-0.6); Monocytes Percent Auto 10.8 % (2.6-8.5); Neutrophils Absolute Auto 2.3 K/mm3 (1.3-6.7); Neutrophils Percent Auto 51.5 % (45.5-73.1); Platelet Count Result 284 k/mm3 (150-375); Red Blood Count 4.79 M/mm3 (4.6-6.20); Red Cell Distribution Width 12.4 % (11.5-14.5); White Blood Count 4.6 K/mm3 (4.5-10.0)
[2021-12-30 12:59] LABS: Prothrombin Time 12.4 Seconds (11.1-14.7)
[2021-12-30 13:00] LABS: Partial Thromboplastin Time 30.5 SECONDS (22.3-36.8)
[2021-12-30 13:06] LABS: Alanine Aminotransferase 31 U/L (6-50); Albumin Level 4.4 g/dL (3.5-5.1); Alkaline Phosphatase 56 U/L (38-126); Anion Gap 9 mmol/L (8-16); Aspartate Amino Transferase 27 U/L (17-59); Bilirubin,Total 0.5 mg/dL (0.2-1.3); Blood Urea Nitrogen 12 mg/dL (9-20); Calcium 8.7 mg/dL (8.4-10.2); Carbon Dioxide 24 mmol/L (22-30); Chloride 107 mmol/L (98-107); Estimated CRCL calculation 71 ml/min; Estimated Glomerular Filt Rate > 60; Glucose 152 mg/dL (65-110); Lipase 159 U/L (23-300); Potassium 3.9 mmol/L (3.4-5.0); Sodium 140 mmol/L (137-145)
--- NOTE | 2021-12-30 13:16 | ED.CHESTPAIN ---
HPI - Chest Pain General Chief Complaint: Chest Pain Stated Complaint: CP Time Seen by Provider: 12/30/21 12:45 History of Present Illness HPI narrative: This is a 51-year-old male past medical history of diabetes type 2 on metformin, who presents to the emergency department complaining of right sided shoulder pain, radiating to the chest for the past day. He states the pain is described as sharp and intermittently cramping, 3-4 of 10, aggravated by movement of the shoulder, alleviated with rest, associated with subjective shortness of breath and dyspnea on exertion. He denies diaphoresis or nausea. He denies recent trauma or heavy lifting, denies swelling of the arm or swelling of the lower extremities. He states he had an episode of chest pain in 2019 without concern for myocardial ischemia. Related Data Home Medications Medication Instructions Recorded Confirmed atorvastatin 10 mg tablet 10 mg PO DAILY 06/04/19 10/03/21 metformin 1,000 mg tablet 1,000 mg PO BID 06/04/19 10/03/21 amitriptyline 50 mg tablet 50 mg PO DAILY 10/24/20 10/03/21 blood sugar diagnostic (OneTouch 10/24/20 10/03/21 Ultra Blue Test Strip) ezetimibe 10 mg tablet 10 mg PO DAILY 10/24/20 10/03/21 gabapentin 600 mg tablet 600 mg PO BID 10/24/20 10/03/21 meloxicam 7.5 mg tablet 7.5 mg PO PRN PRN Pain 10/24/20 10/03/21 Allergies Allergy/AdvReac Type Severity Reaction Status Date / Time tramadol Allergy Severe Anaphylaxis Verified 12/30/21 12:46 Review of Systems Review of Systems: CONSTITUTIONAL: Denies fever, chills, or sweats. EYES: Denies visual changes, redness, or discharge. ENT: Denies rhinorrhea, congestion, sore throat, or otalgia. CARDIOVASCULAR: chest pain, Denies palpitations, or edema. RESPIRATORY: dyspnea Denies cough GASTROINTESTINAL: Denies abdominal pain, nausea, vomiting, or diarrhea. GENITOURINARY: Denies dysuria or hematuria. SKIN: Denies rash or itching. MUSCULOSKELETAL: Right shoulder pain, denies back pain, or myalgia. NEUROLOGIC: Denies headache, numbness, dizziness, or weakness. PSYCHIATRIC: Denies anxiety or depression. [facility] Past Medical History Medical History Anxiety DMII (diabetes mellitus, type 2) Ganglion cyst of dorsum of right wrist GERD (gastroesophageal reflux disease) HLD (hyperlipidemia) Inguinal hernia of left side without obstruction or gangrene Inguinal hernia of right side without obstruction or gangrene Peripheral neuropathy Urticaria Surgical History Surgical History H/O arthroscopy of left knee H/O right inguinal hernia repair History of ear surgery Right side; tympanic membrane History of surgical removal of ganglion cyst History of tonsillectomy Family History Family History Mother Diabetes mellitus Colon cancer Father Diabetes mellitus Sibling Colon cancer Social History Social History Social History: Patient lives at home with his , Cinda Simeon, whom he designates as his surrogate medical decision maker. He also lives with his grandson at home. His PCP is Dr. Cadena. He wishes to be a Full code Smoking status: Never smoker Tobacco type: cigars Smoking end date: 06/17/18 Alcohol intake: current Drinks per week: 4 Substance use: never Additional occupation/education comments: Patient takes care of his grandchildren at home Gender identity (if verbalized by the patient): Male Spiritual care concerns: No Agree to blood products: Yes Exam Narrative: GENERAL: Well-appearing, well-nourished, and in no acute distress. HEAD: Normocephalic, atraumatic. EYES: PERRLA and EOMI. ENT: Nares clear, no rhinorrhea or epistaxis. Mucous membranes moist. Oropharynx without tonsillar hypertrophy exudate or other lesions. NECK: Supple. No adenopa
[2021-12-30 13:17] LABS: Troponin I < 0.012 ng/mL (0.000-0.034)
[2021-12-30 13:36] LABS: D Dimer 0.33 ug/mL (<0.48)
[2021-12-30 15:28] VITALS: BP 142/99; PULSE 86; RESP 18; O2SAT 100
[2021-12-30 15:48] LABS: Troponin I < 0.012 ng/mL (0.000-0.034)
[2021-12-30 16:59] VITALS: BP 140/94; PULSE 89; RESP 16; O2SAT 99
== END 2021-12-30 17:01 | disposition home or self-care (01) ==
PROVIDERS: Emergency Medicine; Emergency Provider Preventive Medicine Aerospace Medicine; PCP Internal Medicine
DX: M25.511 Pain in right shoulder (principal); R07.9 Chest pain, unspecified; E11.42 Type 2 diabetes mellitus with diabetic polyneuropathy; K21.9 Gastro-esophageal reflux disease without esophagitis; E78.5 Hyperlipidemia, unspecified; F41.9 Anxiety disorder, unspecified; Z79.84 Long term (current) use of oral hypoglycemic drugs; Z87.891 Personal history of nicotine dependence; R94.31 Abnormal electrocardiogram [ECG] [EKG]
CPT/HCPCS: 36415; 71046; 80053; 83690; 84484; 85025; 85380; 85610; 85730; 93005; 99284

== ENCOUNTER 2022-01-02 14:04 | Outpatient (RCR) | payer OTHER, SELFPAY | END 2022-01-02 23:59 | disposition home or self-care (01) | LOC: ANHAUDIO 14:04 | PROVIDERS: PCP Internal Medicine; Visit Provider Internal Medicine | DX: Z46.1 Encounter for fitting and adjustment of hearing aid (principal) | CPT/HCPCS: V5014 ==

== ENCOUNTER 2022-01-02 18:01 | Emergency (ER) | payer OTHER, SELFPAY ==
[2022-01-02 18:09] VITALS: BP 142/89; PULSE 96; RESP 16; TEMP 36.3; O2SAT 99
--- NOTE | 2022-01-02 18:38 | ED.GENADULT ---
HPI - General Adult General Chief complaint: Extremity Problem,Nontraumatic Stated complaint: Right Arm Pain Time Seen by Provider: 01/02/22 18:29 Source: patient Mode of arrival: ambulatory Limitations: no limitations History of Present Illness HPI narrative: Patient presents today with a 5-day history of right shoulder pain radiating occasionally to the hand. He also reports some intermittent tingling to the hand. Denies injury or trauma. Currently rates his pain 9/10 and has been taking Tylenol 3 and ibuprofen without relief. He was seen 3 days ago in the ER at [facility] for same symptoms. At that time he had a cardiac work-up that was negative. He is not sure who to follow-up with regarding his shoulder pain. Related Data Home Medications Medication Instructions Recorded Confirmed atorvastatin 10 mg tablet 10 mg PO DAILY 06/04/19 01/02/22 metformin 1,000 mg tablet 1,000 mg PO BID 06/04/19 01/02/22 blood sugar diagnostic (OneTouch 10/24/20 01/02/22 Ultra Blue Test Strip) fenofibrate 160 mg tablet 160 mg PO DAILY 01/02/22 01/02/22 Allergies Allergy/AdvReac Type Severity Reaction Status Date / Time tramadol Allergy Severe Anaphylaxis Verified 01/02/22 18:05 Review of Systems Review of Systems: CONSTITUTIONAL: Denies body aches, fever, chills, or sweats. EYES: Denies visual changes, redness, or discharge. ENT: Denies rhinorrhea, congestion, sore throat, or otalgia. CARDIOVASCULAR: Denies chest pain, palpitations, or edema. RESPIRATORY: Denies cough or dyspnea. GASTROINTESTINAL: Denies abdominal pain, nausea, vomiting, or diarrhea. GENITOURINARY: Denies dysuria or hematuria. SKIN: Denies rash, itching, or wounds. MUSCULOSKELETAL: Denies back pain, or myalgia.+ Shoulder pain NEUROLOGIC: Denies headache, numbness, tingling, or weakness. PSYCH: Denies depression or anxiety. [facility] Past Medical History Medical History Anxiety DMII (diabetes mellitus, type 2) Ganglion cyst of dorsum of right wrist GERD (gastroesophageal reflux disease) HLD (hyperlipidemia) Inguinal hernia of left side without obstruction or gangrene Inguinal hernia of right side without obstruction or gangrene Peripheral neuropathy Urticaria Surgical History Surgical History H/O arthroscopy of left knee H/O right inguinal hernia repair History of ear surgery Right side; tympanic membrane History of surgical removal of ganglion cyst History of tonsillectomy Family History Family History Mother Diabetes mellitus Colon cancer Father Diabetes mellitus Sibling Colon cancer Social History Social History Social History: Patient lives at home with his , Cinda Simeon, whom he designates as his surrogate medical decision maker. He also lives with his grandson at home. His PCP is Dr. Cadena. He wishes to be a Full code Smoking status: Never smoker Tobacco type: cigars Smoking end date: 06/17/18 Alcohol intake: current Drinks per week: 4 Substance use: never Additional occupation/education comments: Patient takes care of his grandchildren at home Gender identity (if verbalized by the patient): Male Spiritual care concerns: No Agree to blood products: Yes Comments At time of signature, I have reviewed and agree with nursing past medical, surgical, social and family history unless otherwise noted. Please see nursing chart for further information. There is no relevant family history pertinent to the presenting complaint Exam Narrative: GENERAL: Well-appearing, well-nourished, and in no acute distress. HEAD: Normocephalic, atraumatic. EYES: EOMI. No redness or drainage. Conjunctivae normal. ENT: Mucous membranes pink and moist. NECK: Normal AROM. Right parasp
== END 2022-01-02 18:48 | disposition home or self-care (01) ==
PROVIDERS: Emergency Provider Nurse Practitioner; PCP Internal Medicine
DX: M62.838 Other muscle spasm (principal); K21.9 Gastro-esophageal reflux disease without esophagitis; E78.5 Hyperlipidemia, unspecified; E11.42 Type 2 diabetes mellitus with diabetic polyneuropathy
CPT/HCPCS: 99213; G0463

== ENCOUNTER 2022-10-25 19:26 | Emergency (ER) | payer OTHER, SELFPAY ==
--- NOTE | ~2022-10-25 | CT_ITS ---
CT of the Abdomen and Pelvis: Indication: Right-sided varicocele Technique: 2.5 mm axial scans were obtained through the abdomen and pelvis following intravenous adm inistration of 100 cc of Omnipaque 350. Dose reduction technique was used on this scan by utilizing a utomated exposure control and iterative reconstruction technique. The dose-length product (DLP) was 8 02.54 mGy-cm. COMPARISON: 06/03/2019 Findings: Scans through the lung bases are unremarkable. Focal enhancing lesion in the liver noted, likely benign. The spleen, pancreas, gallbladder, left adr enal gland, and kidneys are within normal limits. Coarse right adrenal gland calcification suggests s equela of remote hemorrhage or infection. No evidence of aortic aneurysm. No lymphadenopathy. No bowel obstruction or bowel wall thickening. There is probable focal epiploic appendagitis of the m id sigmoid colon, with central fat attenuation and mild surrounding inflammatory change. Tiny fat-con taining umbilical hernia noted. Images through the pelvis were performed. Urinary bladder unremarkable. Prostate gland and seminal ve sicles are unremarkable. No pelvic mass seen. No ascites. Impression: Probable focal epiploic appendagitis of the mid sigmoid colon, as detailed above. Tiny fat-containing umbilical hernia. Enhancing nonspecific hepatic lesion, most likely benign. Reviewed, dictated and finalized at location M. Impression: Probable focal epiploic appendagitis of the mid sigmoid colon, as detailed abov e. Tiny fat-containing umbilical hernia. Enhancing nonspecific hepatic lesion, most likely benign.
--- NOTE | ~2022-10-25 | US_ITS ---
EXAMINATION: US scrotum doppler DATE: 10/25/2022 21:37 INDICATION: Right testicular pain and swelling. TECHNIQUE: Grayscale and Doppler ultrasound images of the testes were obtained. COMPARISON: CT abdomen and pelvis 06/03/2019 FINDINGS: The right testis measures 3.4 x 1.8 x 2.5 cm. The left testis measures 3.3 x 1.9 x 1.9 cm. There is normal vascular flow to both testes. The right epididymis is enlarged with increased vascula r flow, consistent with epididymitis. The left epididymis is normal with normal vascular flow. There is a right-sided varicocele. There is no hydrocele. IMPRESSION: 1. Right-sided epididymitis. 2. Right-sided varicocele. CT abdomen and pelvis is recommended to exclude retroperitoneal lymphadeno minad. Reviewed, dictated and finalized at location E. IMPRESSION: 1. Right-sided epididymitis. 2. Right-sided varicocele. CT abdomen and pelvis is recommended to exclude retr operitoneal lymphadenopathy.
[2022-10-25 19:39] VITALS: BP 143/94; PULSE 93; RESP 18; TEMP 36.4; O2SAT 99
--- NOTE | 2022-10-25 20:33 | ED.GENADULT ---
HPI - General Adult General Chief complaint: Urogenital-Male <Katelynn Lopez PA-C - Last Filed: 10/26/22 02:00> Stated complaint: pain/swelling in groin <GINA Dent Last Filed: 10/26/22 02:00> Time Seen by Provider: 10/25/22 20:03 <GINA Dent Last Filed: 10/26/22 02:00> History of Present Illness HPI narrative: 51 y/o M with a history of right inguinal hernia repair reports for evaluation of right groin pain and right testicular pain and swelling for 2 weeks. Patient reports the groin pain and swelling has worsened over the past few days, is worse with standing and palpation of right testicle. Patient also reporting left flank pain that started yesterday. He denies penile discharge, dysuria, hematuria, abdominal pain, nausea, vomiting or diarrhea, fevers, hematuria, vesicular rash or redness. Denies concern for STDs. <GINA Dent Last Filed: 10/26/22 02:00> Related Data Home medications: Home Medications Medication Instructions Recorded Confirmed atorvastatin 10 mg tablet 10 mg PO DAILY 06/04/19 04/09/22 metformin 1,000 mg tablet 1,000 mg PO BID 06/04/19 04/09/22 blood sugar diagnostic (OneTouch 10/24/20 04/09/22 Ultra Blue Test Strip) fenofibrate 160 mg tablet 160 mg PO DAILY 01/02/22 04/09/22 <GINA Dent Last Filed: 10/26/22 02:00> Allergies/adverse reactions: Allergies Allergy/AdvReac Type Severity Reaction Status Date / Time tramadol Allergy Severe Anaphylaxis Verified 04/09/22 12:58 <GINA Dent Last Filed: 10/26/22 02:00> Review of Systems Review of Systems: CONSTITUTIONAL: Denies fever, chills EYES: Denies visual changes, redness, or discharge. ENT: Denies rhinorrhea, congestion, sore throat, or otalgia. CARDIOVASCULAR: Denies chest pain, palpitations, or edema. RESPIRATORY: Denies cough or dyspnea. GASTROINTESTINAL: See HPI GENITOURINARY: Denies dysuria or hematuria. SKIN: Denies rash or itching. MUSCULOSKELETAL: Denies back pain, joint pain, or myalgia. NEUROLOGIC: Denies headache, numbness, dizziness, or weakness. PSYCHIATRIC: Denies anxiety or depression. <Katelynn Lopez PA-C - Last Filed: 10/26/22 02:00> [facility] Past Medical History Medical History: Medical History Anxiety DMII (diabetes mellitus, type 2) Ganglion cyst of dorsum of right wrist GERD (gastroesophageal reflux disease) HLD (hyperlipidemia) Inguinal hernia of left side without obstruction or gangrene Inguinal hernia of right side without obstruction or gangrene Peripheral neuropathy Urticaria <Katelynn Lopez PA-C - Last Filed: 10/26/22 02:00> Surgical History Surgical History: Surgical History H/O arthroscopy of left knee H/O right inguinal hernia repair History of ear surgery Right side; tympanic membrane History of surgical removal of ganglion cyst History of tonsillectomy <Katelynn Lopez PA-C - Last Filed: 10/26/22 02:00> Family History Family History: Family History Mother Diabetes mellitus Colon cancer Father Diabetes mellitus Sibling Colon cancer <Katelynn Lopez PA-C - Last Filed: 10/26/22 02:00> Social History Social History: Social History Social History: Patient lives at home with his , Cinda Simeon, whom he designates as his surrogate medical decision maker. He also lives with his grandson at home. His PCP is Dr. Cadena. He wishes to be a Full code Smoking status: Never smoker Tobacco type: cigars Smoking end date: 06/17/18 Alcohol intake: current Drinks per week: 4 Substance use: never Additional occupation/education comments: Patient takes care of his grandchildren at home Gender identity (if verbalize
[2022-10-25] MEDS: IBUPROFEN 600 MG TABLET PO (20:55)
[2022-10-25] MEDS: ACETAMINOPHEN 500 MG TABLET 1000 MG PO (20:55)
[2022-10-25 21:08] LABS: Appearance Urine Clear (Clear); Bacteria Urine None Seen /hpf; Bilirubin Urine Negative (Negative); Blood Urine Negative (Negative); Color Urine Yellow (Yellow); Glucose Urine UA Negative (Negative); Ketones Urine Negative (Negative); Leukocyte Esterase Ur Negative LEU/UL (Negative); Nitrate Urine Negative (Negative); Non Pathogenic Casts 0-2; Protein Urine 2+ mg/dL (Negative); RBC Urine 0-2 /hpf (0-2); Specific Grav Ur 1.021 (1.001-1.035); Squamous Epithelial Cell Urine None seen /hpf (Few); Urobilinogen Urine 0.2 mg/dL (<2.0); WBC Urine 0-5 /hpf; pH Urine 5.5 (5.0-9.0)
[2022-10-25 21:15] LABS: Add Urine Microscopic? YES
[2022-10-25 22:32] LABS: Basophils Percent Auto 0.4 % (0.2-1.2); Eosinophils Percent Auto 0.7 % (0-4.4); Hematocrit 42.7 % (42.0-52.0); Hemoglobin 14.5 g/dL (14.0-18.0); Immature Granulocyte Absolute 0.01 K/mm3 (0.00-0.031); Immature Granulocyte Percent A 0.2 % (0-0.5); Lymphocytes Absolute Auto 1.96 K/mm3 (0.9-3.2); Lymphocytes Percent Auto 36.5 % (18.3-44.2); Mean Corpuscular Hemoglobin 30.5 pg (26-34); Mean Corpuscular Volume 89.7 fl (80-100); Mean Platelet Volume 9.7 fl (7.4-10.4); Monocytes Absolute Auto 0.6 K/mm3 (0.1-0.6); Monocytes Percent Auto 11.4 % (2.6-8.5); Neutrophils Absolute Auto 2.7 K/mm3 (1.3-6.7); Neutrophils Percent Auto 50.8 % (45.5-73.1); Platelet Count Result 309 k/mm3 (150-375); Red Blood Count 4.76 M/mm3 (4.6-6.20); Red Cell Distribution Width 13.1 % (11.5-14.5); White Blood Count 5.4 K/mm3 (4.5-10.0)
[2022-10-25 22:59] LABS: Alanine Aminotransferase 34 U/L (6-50); Alkaline Phosphatase 70 U/L (38-126); Anion Gap 8 mmol/L (8-16); Aspartate Amino Transferase 35 U/L (17-59); Bilirubin,Total 0.7 mg/dL (0.2-1.3); Blood Urea Nitrogen 14 mg/dL (9-20); Calcium 9.8 mg/dL (8.4-10.2); Carbon Dioxide 27 mmol/L (22-30); Chloride 105 mmol/L (98-107); Estimated CRCL calculation 77 ml/min; Estimated Glomerular Filt Rate > 60; Glucose 93 mg/dL (65-110); Potassium 3.8 mmol/L (3.4-5.0); Sodium 140 mmol/L (137-145)
== END 2022-10-26 01:12 | disposition home or self-care (01) ==
PROVIDERS: Emergency Provider Physician Assistant; PCP Internal Medicine
DX: N45.1 Epididymitis (principal); I86.1 Scrotal varices; K57.92 Diverticulitis of intestine, part unspecified, without perforation or abscess without bleeding; K76.9 Liver disease, unspecified; E11.9 Type 2 diabetes mellitus without complications; E78.5 Hyperlipidemia, unspecified
CPT/HCPCS: 36415; 74177; 76870; 80053; 81001; 85025; 93976; 99284; A9270; Q9967

== ENCOUNTER 2023-04-05 15:06 | Outpatient (CLI) | payer OTHER, SELFPAY ==
--- NOTE | 2023-04-05 15:34 | ECG_ITS ---
Measurements Intervals [place] Rate: 76 P: [place]: 0 QRS: 46 QRSD: 88 T: 50 QT: 329 QTc: 372 Interpretive Statements SINUS ARRHYTHMIA NORMAL ELECTROCARDIOGRAM eCG COMPARED TO ECG 12/30/2021 12:32:11 ATRIAL FIBRILLATION NOW PRESENT Electronically Signed On 04-06-2023 8:46:55 CDT by Kieran Breaux M.D.
[2023-04-05 15:57] LABS: Anion Gap 7 mmol/L (8-16); Blood Urea Nitrogen 18 mg/dL (9-20); Calcium 9.5 mg/dL (8.4-10.2); Carbon Dioxide 27 mmol/L (22-30); Chloride 104 mmol/L (98-107); Estimated Glomerular Filt Rate > 60; Glucose 112 mg/dL (65-110); Potassium 4.2 mmol/L (3.4-5.0); Sodium 138 mmol/L (137-145)
== END 2023-04-05 15:07 | disposition home or self-care (01) ==
PROVIDERS: Anesthesiology; PCP Internal Medicine; Visit Provider Surgery
DX: E11.9 Type 2 diabetes mellitus without complications (principal); Z01.818 Encounter for other preprocedural examination; I48.91 Unspecified atrial fibrillation
CPT/HCPCS: 36415; 80048; 93005

== ENCOUNTER 2023-04-08 03:04 | Day surgery (SDC) | payer OTHER, SELFPAY ==
[2023-04-04 15:37] VITALS: BMI 29.5
--- NOTE | 2023-04-04 15:39 | PC.NURSE ---
Report to the Outpatient Waiting Room, entrance under the green pavilion located off [facility], at 0600 on 04-08-23. Planned Procedure Time: 0730. Time changes happen often and if your time is changed the preop area will call you the afternoon before. - You and your visitor will be asked to self-screen and do not enter if you have any COVID symptoms. - A mask is optional within the hospital at this time. Patients may have clear liquids (water, carbonated beverages, clear teas, apple juice) until 3 hours prior to surgery with a maximum of 20 ounces. 0430 - No food from midnight until time of surgery - Infants may have breast milk until 4 hours before surgery, formula 6 hours prior to surgery. - Children will be allowed to drink immediately following surgery. If applicable, please bring a bottle or sippy cup to assist with drinking. Juice, water, soda, and popsicles are readily available. For infants on formula, please bring formula the day of surgery. Pacifiers are allowed. Take the following medications with a SIP of water the morning of surgery: None DO NOT STOP ANY OF YOUR OTHER PRESCRIPTION MEDICATIONS PRIOR TO SURGERY ?EXCEPT THE FOLLOWING Medications to discontinue per physician: N/A Please no make-up, nail croatian, hairspray, perfume, deodorant, or body powder the day of surgery. No jewelry (including any body piercings) or valuables the day of surgery, leave them at home. Please take a shower or bath the night before, or the morning of, surgery with an antibacterial soap. Wear comfortable, loose fitting clothing. Children are encouraged to wear pajamas. - Jewelry must be removed prior to entering the operating room. Rings and piercings that are not removed may be cut off. - The hospital will not accept responsibility for valuables. - Please leave all valuables, including medications, at home the day of surgery. If you are going home after surgery, a licensed dump truck driver must drive you home. - NO public transportation without another adult if you receive anesthesia. - We recommend that an adult stay with you for 24 hours following discharge. - We also recommend that you do not drive, make important decision, drink alcoholic beverages, or take any drugs that were not prescribed by your health care provider for at least 24 hours after your discharge time. For Pediatric surgeries, we recommend two adults accompany the child home. Follow any additional instructions given to you from your surgeon. If you or anyone in your household have experienced Covid symptoms in the past week, please notify your surgeon or the nurse liaison at the phone number below for possible testing. Telephone instructions given to Cinda Simeon and asked if any additional questions and then verbalized understanding. Patient advised to call surgeon office or pre surgery nurse liaison [phone] if any additional questions.
[2023-04-08] VITALS (9 sets, daily range): BP systolic 116–151; BP diastolic 71–95; PULSE 73–100; RESP 10–20; TEMP 36.3–36.4; O2SAT 92–100
[2023-04-08 06:51] LABS: Glucose Point of Care 94 mg/dl (65-105)
--- NOTE | 2023-04-08 06:51 | WPDANESEPPF ---
Anes - Initial Pre Proc Eval Procedure: Operation Date: 04/08/23 07:30 Proposed Procedures p Excision of Perianal Skin Tag, Excision of Left Buttock Subcutaneous Mass - Ramirez Santos MD Date/Time: 04/08/23 06:51 Surgeon: Ramirez Santos MD Pre Op Diagnosis: Perianal Skin Tag,Left Buttock Subcutaneous Mass Patient Data Age: 52 Gender: M Height: 1.75 m Weight: 90.72 kg Allergies Allergy/AdvReac Type Severity Reaction Status Date / Time tramadol Allergy Severe Anaphylaxis Verified 04/08/23 06:53 Home Medications Medication Instructions Recorded Confirmed Type atorvastatin 10 mg tablet 10 mg PO DAILY 06/04/19 04/08/23 History metformin 1,000 mg tablet 1,000 mg PO BID 06/04/19 04/08/23 History blood sugar diagnostic (OneTouch 10/24/20 04/08/23 History Ultra Blue Test Strip) Patient hx anesthesia problems: none Family hx anesthesia problems: none Results Review: All pre-operative results and documents have been reviewed as part of the pre-operative evaluation. [facility] Past Medical History Medical History Anxiety DMII (diabetes mellitus, type 2) Ganglion cyst of dorsum of right wrist GERD (gastroesophageal reflux disease) HLD (hyperlipidemia) Inguinal hernia of left side without obstruction or gangrene Inguinal hernia of right side without obstruction or gangrene Peripheral neuropathy Urticaria Surgical History Surgical History H/O arthroscopy of left knee H/O right inguinal hernia repair History of ear surgery Right side; tympanic membrane History of surgical removal of ganglion cyst History of tonsillectomy Family History Family History Mother Diabetes mellitus Colon cancer Father Diabetes mellitus Sibling Colon cancer Social History Social History (Updated 04/08/23 @ 06:55 by Blu Sosa DO) Social History: Patient lives at home with his , Cinda Simeon, whom he designates as his surrogate medical decision maker. He also lives with his grandson at home. His PCP is Dr. Cadena. He wishes to be a Full code Smoking status: Never smoker Tobacco type: cigars Second hand tobacco smoke exposure: No Smoking end date: 06/17/18 Alcohol intake: current Drinks per week: 7 Alcohol use details: 1-2 drinks/day Substance use: never Substance use type: does not use Living arrangements: with family Additional occupation/education comments: Patient takes care of his grandchildren at home Gender identity (if verbalized by the patient): Male Spiritual care concerns: No Agree to blood products: Yes Anes - Eval Final PreProcedure Day of Procedure 04/08/23 06:51 Patient weight: overweight Heart: regular rate and rhythm Lungs: clear to auscultation Airway: Mallampati scale class III Neurological: alert and oriented Last oral intake: >/= 8 hours ASA classification: III Emergent: no Anesthetic plan: proceed Anesthesia type and monitoring: general ETT and standard monitoring Results Review: All pre-operative results and documents have been reviewed as part of the pre-operative evaluation. Informed Consent: The patient's anesthetic plan and its attendant risks and benefits were discussed with the patient/family/POA. Questions were solicited and answers provided to the satisfaction of the patient/family/POA.
[2023-04-08] MEDS: LACTATED RINGERS 1,000 ML 30 ML IV CONT (07:00)
--- NOTE | 2023-04-08 07:19 | WPDHPUPDATE1 ---
History and Physical Update Update Date/Time: 04/08/23 07:19 History and Physical has been reviewed, including an updated exam of the patient. There are NO changes in the patient's condition. Risks, benefits, and alternatives have been discussed and questions answered. Patient agrees to proceed with procedure.
[2023-04-08] MEDS: ceFAZolin SODIUM 1 GM VIAL 2 GM IV PUSH (07:48)
[2023-04-08] MEDS: LIDO 1%/EPINEPHRINE 1:100,000 20 ML VIAL 50 ML INFILTRATE (07:54)
[2023-04-08] MEDS: BUPivacaine HCL 0.5% 10 ML AMP 30 ML INFILTRATE (07:54)
[2023-04-08] MEDS: KETOROLAC 30 MG/ML VIAL (*BKC) IV PUSH (08:16)
--- NOTE | 2023-04-08 08:36 | W.PM.PROC2 ---
Procedure Note - Detailed Date of Procedure 04/08/23 Pre-op Diagnosis External hemorrhoid and perianal Skin Tag,Left Buttock Subcutaneous Mass Post-op Diagnosis Same Procedure Performed Excision of left buttock subcutaneous mass and excision of external hemorrhoid with associated perianal skin tag. Surgeon Ramirez Santos MD [employer] Jack[employer] LOUIS Anesthesia General Indications Patient is a 52-year-old male who presented with complaints of irritation and occasional bleeding from a posterior external hemorrhoid and associated skin tag. He also states that years ago ahead incision drainage of a buttock abscess and it was packed in the packing was never removed. He has a subcutaneous mass in this area without infection and so presents now for excisional hemorrhoidectomy of the external hemorrhoid and perianal skin tag as well as excision of the old scar to make sure there is no foreign body in the area. Findings The scar and subcutaneous tissue of the previous abscess cavity was excised. There is no evidence of any retained packing or foreign body in the previously drained abscess cavity in the left buttock. The posterior perianal skin tag at 12:00 with the patient in the prone robel-knife position also had associated external hemorrhoid which was excised with the perianal skin tag. Description of Procedure After informed consent was obtained patient brought to the operating room was placed supine position and general endotracheal anesthesia was administered on the gurney. He was then turned to the prone robel-knife position on operating table taking great care to make sure all the pressure points were well padded. The buttocks were then taped apart to expose the perianal region and the left medial buttock region. The area was then prepped and draped usual sterile fashion. A time-out was then performed correctly identifying the patient as well as procedure to be performed. Site marking was verified. He was given some perioperative IV antibiotics. I 1st started by excising old scar from the medial left buttock region where the prior abscess had been drained. A elongated elliptical incision was used to incise around the old scar deeply down to the dermis of the skin. Then utilized electrocautery I dissected down through the subcu tissue excised out all the chronic scar tissue underneath the old scar. I did not find any evidence of retained packing or foreign body in the region. The tissue removed was 3cm in length by 1cm width by 1.5cm in maximal depth. It had the attached ellipse of skin. The sent to pathology for examination. Incision was then irrigated sterile saline solution hemostasis was then achieved electrocautery. The wound was then closed utilizing interrupted 2-0 Vicryl sutures in the subcutaneous tissues. This is then followed by interrupted 3-0 Vicryl sutures in the deep dermal layer. The skin edges were then approximated utilizing a running subcuticular 4-0 Monocryl suture. The length of the skin closure on the buttock incision was 4.5cm. I then turned my attention to excising out the perianal skin tag and associated external hemorrhoid. A Weeks anal retractor was placed into the anal count canal. At the 12 o'clock position with the patient prone there was a external hemorrhoid with associated skin tag. I injected 1% lidocaine mixed with 0.5% Marcaine underneath the hemorrhoid and perianal skin tag. A 3-0 Vicryl suture was then placed at the apex of the external hemorrhoid and then a scalp was used to incise the tissue on either side of the hemorrhoid continuing out onto the perianal skin to excise off the perianal skin tag. Electrocautery was used to complete the excision and the specimens passed off table sent to pathology for examination. The previously placed 3-0 Vicryl sutures then run in a locking fashion to close the perianal skin incision. I then irrigated out the anal canal on aspirated any blood clot in the area. I
[2023-04-08 08:57] LABS: Glucose Point of Care 120 mg/dl (65-105)
== END 2023-04-08 10:37 | disposition home or self-care (01) ==
PROVIDERS: PCP Internal Medicine; Visit Provider Surgery
PROC: (CPT 46999; principal; 2023-04-08 07:30)
DX: K64.4 Residual hemorrhoidal skin tags (principal); L90.5 Scar conditions and fibrosis of skin; E11.9 Type 2 diabetes mellitus without complications; E78.5 Hyperlipidemia, unspecified; Z79.84 Long term (current) use of oral hypoglycemic drugs; Z87.891 Personal history of nicotine dependence
CPT/HCPCS: 46999; 11403; 12032; 82948; 88304; A9270; J0690; J1885; J2250; J2405; J2704; J3010; J7120

== ENCOUNTER 2023-05-20 02:08 | Day surgery (SDC) | payer OTHER, SELFPAY ==
--- NOTE | 2023-05-08 10:49 | PC.NURSE ---
Report to the Outpatient Waiting Room, entrance under the green pavilion located off [facility], at 1230 on 05-20-23. Planned Procedure Time: 1430. Time changes happen often and if your time is changed the preop area will call you the afternoon before. - You and your visitor will be asked to self-screen and do not enter if you have any COVID symptoms. - A mask is optional within the hospital at this time. Patients may have clear liquids (water, carbonated beverages, clear teas, apple juice) until 3 hours prior to surgery with a maximum of 20 ounces. 1130 - No food from midnight until time of surgery - Infants may have breast milk until 4 hours before surgery, infant formula 6 hours prior to surgery. - Children will be allowed to drink immediately following surgery. If applicable, please bring a bottle or sippy cup to assist with drinking. Juice, water, soda, and popsicles are readily available. For infants on formula, please bring formula the day of surgery. Pacifiers are allowed. Take the following medications with a SIP of water the morning of surgery: None DO NOT STOP ANY OF YOUR OTHER PRESCRIPTION MEDICATIONS PRIOR TO SURGERY ?EXCEPT THE FOLLOWING Medications to discontinue per physician: Diclofenac Date to take last dose: Per Dr. Mazariegos Please no make-up, nail japanese, hairspray, perfume, deodorant, or body powder the day of surgery. No jewelry (including any body piercings) or valuables the day of surgery, leave them at home. Please take a shower or bath the night before, or the morning of, surgery with an antibacterial soap. Wear comfortable, loose fitting clothing. Children are encouraged to wear pajamas. - Jewelry must be removed prior to entering the operating room. Rings and piercings that are not removed may be cut off. - The hospital will not accept responsibility for valuables. - Please leave all valuables, including medications, at home the day of surgery. If you are going home after surgery, a licensed wrecking car driver must drive you home. - NO public transportation without another adult if you receive anesthesia. - We recommend that an adult stay with you for 24 hours following discharge. - We also recommend that you do not drive, make important decision, drink alcoholic beverages, or take any drugs that were not prescribed by your health care provider for at least 24 hours after your discharge time. For Pediatric surgeries, we recommend two adults accompany the child home. Follow any additional instructions given to you from your surgeon. If you or anyone in your household have experienced Covid symptoms in the past week, please notify your surgeon or the nurse liaison at the phone number below for possible testing. Telephone instructions given to Baldev Simeon and asked if any additional questions and then verbalized understanding. Patient advised to call surgeon office or pre surgery nurse liaison [phone] if any additional questions.
[2023-05-08 10:53] VITALS: BMI 31.8
--- NOTE | 2023-05-16 13:26 | PM.IMHP ---
H&P: HPI History of Present Illness Date/Time: 05/16/23 13:26 Chief Complaint: Trigger Finger RIght 3rd Narrative: Patient has triggering of his LEFT finger 3rd finger he has had injections medicine exercise and time. Unfortunately the pain persisted. Review of Systems Review of Systems: All systems reviewed & are unremarkable except as noted in HPI and below Musculoskeletal: Musculoskeletal: Reports arthralgias and Reports joint swelling PMFSH Past Medical History Medical History Anxiety DMII (diabetes mellitus, type 2) Ganglion cyst of dorsum of right wrist GERD (gastroesophageal reflux disease) HLD (hyperlipidemia) Inguinal hernia of left side without obstruction or gangrene Inguinal hernia of right side without obstruction or gangrene Peripheral neuropathy Urticaria Surgical History Surgical History H/O arthroscopy of left knee H/O right inguinal hernia repair History of ear surgery Right side; tympanic membrane History of hand surgery right trigger finger- 3rd digit History of surgical removal of ganglion cyst History of tonsillectomy Family History Family History Mother Diabetes mellitus Colon cancer Father Diabetes mellitus Sibling Colon cancer Malignant neoplasm of prostate Social History Social History Social History: Patient lives at home with his , Cinda Simeon, whom he designates as his surrogate medical decision maker. He also lives with his grandson at home. His PCP is Dr. Cadena. He wishes to be a Full code Smoking status: Never smoker Tobacco type: cigars Second hand tobacco smoke exposure: No Smoking end date: 06/17/18 Alcohol intake: current Drinks per week: 5 Alcohol use details: 1-2 drinks/day Substance use: never Substance use type: does not use Lack of Transportation: No Lack of Food: Never True Current Housing: I Have Housing Concerned About Future Housing: No Difficulty Paying Gas/Electric Bills: No Difficulty Paying for Meds: No Currently Unemployed: YES Education: Decline to Answer Difficulty w/ Childcare or Family Care: No Living arrangements: with family Occupation/Education: unemployed Additional occupation/education comments: Patient takes care of his grandchildren at home Gender identity (if verbalized by the patient): Male Spiritual care concerns: No Agree to blood products: Yes Meds Home Medications and Allergies Home Medications Medication Instructions Recorded Confirmed Type atorvastatin 10 mg tablet 10 mg PO DAILY 06/04/19 05/08/23 History metformin 1,000 mg tablet 1,000 mg PO BID 06/04/19 05/08/23 History blood sugar diagnostic (OneTouch 10/24/20 04/25/23 History Ultra Blue Test Strip) baclofen 10 mg tablet 10 mg PO DAILY 04/22/23 05/08/23 History diclofenac sodium 75 mg 75 mg PO BID 04/22/23 05/08/23 History tablet,delayed release gabapentin 600 mg tablet 600 mg PO DAILY 04/22/23 05/08/23 History pregabalin 150 mg capsule 150 mg PO BID 04/22/23 05/08/23 History Allergies Allergy/AdvReac Type Severity Reaction Status Date / Time tramadol Allergy Severe Anaphylaxis Verified 05/16/23 13:27 Exam Narrative: Patient is catching and locking his LEFT 3rd finger he has got pain with any manipulation. He has got a positive catching. He has failed conservative treatment. Eyes: General: appearance normal, both eyes and all related structures Neck: Neck: supple Resp: Effort & Inspection: normal respiratory effort Cardio: Rate: regular rate Rhythm: regular rhythm Assessment and Plan Assessment and plan (1) Trigger finger, left middle finger: Code(s): M65.332 - Trigger finger, left middle finger Status: Acute Assessment and Plan: P
--- NOTE | 2023-05-20 11:44 | WPDHPUPDATE1 ---
History and Physical Update Update Date/Time: 05/20/23 11:44 History and Physical has been reviewed, including an updated exam of the patient. There are NO changes in the patient's condition. Risks, benefits, and alternatives have been discussed and questions answered. Patient agrees to proceed with procedure.
[2023-05-20] MEDS: ACETAMINOPHEN 500 MG TABLET 1000 MG PO (13:10)
[2023-05-20] MEDS: LACTATED RINGERS 1,000 ML 30 ML IV CONT (13:40)
[2023-05-20 13:45] LABS: Glucose Point of Care 83 mg/dl (65-105)
--- NOTE | 2023-05-20 13:48 | WPDANESEPPF ---
Anes - Initial Pre Proc Eval Procedure: Operation Date: 05/20/23 14:30 Proposed Procedures p Trigger Finger Release Left Third Digit - Luis A Mazariegos MD Date/Time: 05/20/23 13:48 Surgeon: Luis A Mazariegos MD Pre Op Diagnosis: left third Trigger Finger Patient Data Age: 52 Gender: M Height: 1.75 m Weight: 97.7 kg Allergies Allergy/AdvReac Type Severity Reaction Status Date / Time tramadol Allergy Severe Anaphylaxis Verified 05/16/23 13:27 Home Medications Medication Instructions Recorded Confirmed Type atorvastatin 10 mg tablet 10 mg PO DAILY 06/04/19 05/17/23 History metformin 1,000 mg tablet 1,000 mg PO BID 06/04/19 05/17/23 History blood sugar diagnostic (OneTouch 10/24/20 05/17/23 History Ultra Blue Test Strip) baclofen 10 mg tablet 10 mg PO DAILY 04/22/23 05/17/23 History diclofenac sodium 75 mg 75 mg PO BID 04/22/23 05/17/23 History tablet,delayed release gabapentin 600 mg tablet 600 mg PO DAILY 04/22/23 05/17/23 History pregabalin 150 mg capsule 150 mg PO BID 04/22/23 05/17/23 History hydrocodone 7.5 mg-acetaminophen 1 tablet PO Q4H PRN pain #10 tabs 05/20/23 Rx 325 mg tablet Laboratory Tests 05/20/23 13:42 POC Capillary Glucose 83 mg/dl (65-105) Patient hx anesthesia problems: none Family hx anesthesia problems: none Results Review: All pre-operative results and documents have been reviewed as part of the pre-operative evaluation. [facility] Past Medical History Medical History Anxiety DMII (diabetes mellitus, type 2) Ganglion cyst of dorsum of right wrist GERD (gastroesophageal reflux disease) HLD (hyperlipidemia) Inguinal hernia of left side without obstruction or gangrene Inguinal hernia of right side without obstruction or gangrene Peripheral neuropathy Urticaria Surgical History Surgical History (Updated 05/16/23 @ 13:40 by Jeanie Treviño MA) H/O arthroscopy of left knee H/O right inguinal hernia repair History of ear surgery Right side; tympanic membrane History of hand surgery right trigger finger- 3rd digit History of surgical removal of ganglion cyst History of tonsillectomy Hx of excision of mass Excision of left buttock subcutaneous mass and excision of external hemorrhoid with associated perianal skin tag on 04/08/23 SAW Family History Family History Mother Diabetes mellitus Colon cancer Father Diabetes mellitus Sibling Colon cancer Malignant neoplasm of prostate Social History Social History Social History: Patient lives at home with his , Cinda Simeon, whom he designates as his surrogate medical decision maker. He also lives with his grandson at home. His PCP is Dr. Cadena. He wishes to be a Full code Smoking status: Never smoker Tobacco type: cigars Second hand tobacco smoke exposure: No Smoking end date: 06/17/18 Alcohol intake: current Drinks per week: 5 Alcohol use details: 1-2 drinks/day Substance use: never Substance use type: does not use Lack of Transportation: No Lack of Food: Never True Current Housing: I Have Housing Concerned About Future Housing: No Difficulty Paying Gas/Electric Bills: No Difficulty Paying for Meds: No Currently Unemployed: YES Education: Decline to Answer Difficulty w/ Childcare or Family Care: No Living arrangements: with family Occupation/Education: unemployed Additional occupation/education comments: Patient takes care of his grandchildren at home Gender identity (if verbalized by the patient): Male Spiritual care concerns: No Agree to blood products: Yes Anes - Eval Final PreProcedure Day of Procedure 05/20/23 13:48 Patient weight: obese Heart: regular rate and rhythm Lungs: clear to auscultation Airway: Mallampati scale class II Neurological: al
[2023-05-20] MEDS: KETOROLAC 15 MG/ML VIAL (*BKC) IV PUSH (14:00)
[2023-05-20] MEDS: ceFAZolin 2 GM/D5W 50 ML 2 GM/50 ML BAG IVPB (14:00)
[2023-05-20 14:07] VITALS: BP 139/96; PULSE 99; RESP 16; TEMP 36.3; O2SAT 98
[2023-05-20] MEDS: LIDOCAINE HCL 1% LOCAL INJ 10 ML VIAL INFILTRATE (14:14)
--- NOTE | 2023-05-20 14:15 | P.OP_ITS ---
Procedure Note - Detailed Date of Procedure 05/20/23 Pre-op Diagnosis leLft third Trigger Finger Post-op Diagnosis Same Procedure Performed Release A1 lindsay Left 3rd finger Surgeon Luis A Mazariegos MD Anesthesia General Description of Procedure Patient brought to operating room 8. General anesthetic was given. Left arm sterilely prepped and draped in usual manner. Local infiltrate placed along line of intended incision in line with the distal palmar crease. Dissection carried down through the skin. The lindsay and the tendon sheath identified the sheath was released under direct vision noted to be quite thickened. The tendon had full excursion without impingement at this time. Hemostasis obtained and closed with the 3-0 Prolene. Sterile dressing applied patient tolerated procedure well. Estimated Blood Loss 5 Drains No Packing No Pathology None sent [facility] [facility] [place] Billing Surgery - Charge Forward: Surgery Billing (Left 3rd Trigger Finger Release [id number])
[2023-05-20 14:24] VITALS: BP 117/76; PULSE 91; RESP 14
[2023-05-20 14:44] LABS: Glucose Point of Care 94 mg/dl (65-105)
[2023-05-20 14:50] VITALS: BP 130/76; PULSE 84; O2SAT 95
[2023-05-20 15:20] VITALS: BP 140/80; PULSE 84
== END 2023-05-20 15:36 | disposition home or self-care (01) ==
PROVIDERS: PCP Internal Medicine; Visit Provider Orthopaedic Surgery
PROC: (CPT 26055; principal; 2023-05-20 14:30)
DX: M65.332 Trigger finger, left middle finger (principal); E11.9 Type 2 diabetes mellitus without complications; K21.9 Gastro-esophageal reflux disease without esophagitis; E78.5 Hyperlipidemia, unspecified
CPT/HCPCS: 26055; 82948; A9270; J0690; J1885; J2250; J2704; J3010; J7120

== ENCOUNTER 2024-01-27 03:56 | Day surgery (SDC) | payer OTHER, SELFPAY ==
[2024-01-22 18:14] VITALS: BMI 29.5
--- NOTE | 2024-01-22 18:35 | PC.NURSE ---
Report to the Outpatient Waiting Room, entrance under the green pavilion located off [facility], at 0900 on 01-27-24. Planned Procedure Time: 1100. Time changes happen often and if your time is changed the preop area will call you the afternoon before. - You and your visitor will be asked to self-screen and do not enter if you have any COVID symptoms. - A mask is optional within the hospital at this time. Patients may have clear liquids (water, carbonated beverages, clear teas, apple juice) until 3 hours prior to surgery with a maximum of 20 ounces. 0800 - No food from midnight until time of surgery - Infants may have breast milk until 4 hours before surgery, infant formula 6 hours prior to surgery. - Children will be allowed to drink immediately following surgery. If applicable, please bring a bottle or sippy cup to assist with drinking. Juice, water, soda, and popsicles are readily available. For infants on formula, please bring formula the day of surgery. Pacifiers are allowed. Take the following medications with a SIP of water the morning of surgery: None DO NOT STOP ANY OF YOUR OTHER PRESCRIPTION MEDICATIONS PRIOR TO SURGERY ?EXCEPT THE FOLLOWING Medications to discontinue per physician: vitamins and supplements; Diclofenac Date to take last dose: 01-24-24; Per Dr. Mazariegos Please no make-up, nail bolivian, hairspray, perfume, deodorant, or body powder the day of surgery. No jewelry (including any body piercings) or valuables the day of surgery, leave them at home. Please take a shower or bath the night before, or the morning of, surgery with an antibacterial soap. Wear comfortable, loose fitting clothing. Children are encouraged to wear pajamas. - Jewelry must be removed prior to entering the operating room. Rings and piercings that are not removed may be cut off. - The hospital will not accept responsibility for valuables. - Please leave all valuables, including medications, at home the day of surgery. If you are going home after surgery, a licensed local tanker truck driver must drive you home. - NO public transportation without another adult if you receive anesthesia. - We recommend that an adult stay with you for 24 hours following discharge. - We also recommend that you do not drive, make important decision, drink alcoholic beverages, or take any drugs that were not prescribed by your health care provider for at least 24 hours after your discharge time. For Pediatric surgeries, we recommend two adults accompany the child home. Follow any additional instructions given to you from your surgeon. If you or anyone in your household have experienced Covid symptoms in the past week, please notify your surgeon or the nurse liaison at the phone number below for possible testing. Telephone instructions given to Patrick Simeon and asked if any additional questions and then verbalized understanding. Patient advised to call surgeon office or pre surgery nurse liaison [phone] if any additional questions.
--- NOTE | 2024-01-23 07:38 | PM.IMHP ---
H&P: HPI History of Present Illness Date/Time: 01/23/24 07:38 Chief Complaint: Patient has catching locking of his left 2nd finger. He has failed conservative treatment. He has had previous the trigger finger releases. Review of Systems Musculoskeletal: Musculoskeletal: Reports arthralgias, Reports joint swelling and Reports stiffness PMFSH Past Medical History Medical History (Updated 12/31/23 @ 12:06 by Luis A Mazariegos MD) Anxiety DMII (diabetes mellitus, type 2) Ganglion cyst of dorsum of right wrist GERD (gastroesophageal reflux disease) HLD (hyperlipidemia) Inguinal hernia of left side without obstruction or gangrene Inguinal hernia of right side without obstruction or gangrene Peripheral neuropathy Rheumatic heart valve regurgitation Urticaria Surgical History Surgical History H/O arthroscopy of left knee H/O right inguinal hernia repair History of ear surgery Right side; tympanic membrane History of hand surgery right trigger finger- 3rd digit left trigger finger- 3rd digit History of surgical removal of ganglion cyst History of tonsillectomy Hx of excision of mass Excision of left buttock subcutaneous mass and excision of external hemorrhoid with associated perianal skin tag on 04/08/23 SAW Family History Family History (Updated 12/31/23 @ 11:48 by MARIA C Robertson) Mother Diabetes mellitus Colon cancer Hypertension Hyperlipemia Father Diabetes mellitus Dementia Hypertension Sibling Colon cancer Malignant neoplasm of prostate Diabetes mellitus Social History Social History (Updated 12/31/23 @ 11:48 by MARIA C Robertson) Social History: Patient lives at home with his , Cinda Simeon, whom he designates as his surrogate medical decision maker. He also lives with his grandson at home. His PCP is Dr. Cadena. He wishes to be a Full code Smoking status: Never smoker Tobacco type: cigars Second hand tobacco smoke exposure: No Smoking end date: 06/17/18 Alcohol intake: current Drinks per week: 5 Alcohol use details: Socially Substance use: never Substance use type: does not use Do You Feel Safe in your Home?: Yes Lack of Transportation: No Lack of Food: Never True Current Housing: I Have Housing Concerned About Future Housing: No Difficulty Paying Gas/Electric Bills: No Difficulty Paying for Meds: No Currently Unemployed: No Education: High School Diploma/GED Difficulty w/ Childcare or Family Care: No Living arrangements: with friend(s) Occupation/Education: unemployed Additional occupation/education comments: Patient takes care of his grandchildren at home Gender identity (if verbalized by the patient): Male Spiritual care concerns: No Agree to blood products: Yes Meds Home Medications and Allergies Home Medications Medication Instructions Recorded Confirmed Type atorvastatin 10 mg tablet 10 mg PO DAILY 06/04/19 01/22/24 History metformin 1,000 mg tablet 1,000 mg PO BID 06/04/19 01/22/24 History blood sugar diagnostic (OneTouch 10/24/20 12/31/23 History Ultra Blue Test Strip) baclofen 10 mg tablet 10 mg PO DAILY 04/22/23 01/22/24 History diclofenac sodium 75 mg 75 mg PO BID 04/22/23 01/22/24 History tablet,delayed release gabapentin 600 mg tablet 600 mg PO DAILY 04/22/23 01/22/24 History pregabalin 150 mg capsule 150 mg PO BID 04/22/23 01/22/24 History docusate sodium 100 mg capsule 100 mg PO DAILY PRN constipation 01/22/24 01/22/24 History pikxnhjv-lxqoqnmp-orjne acid 400 1 tablet PO DAILY 01/22/24 01/22/24 History mcg-vit K 20 mcg-lycop 300 mcg tablet vitamin E 268 mg (400 unit) capsule 268 mg PO DAILY 01/22/24 01/22/24 History Allergies Allergy/AdvReac Type Severity Reaction Status Date / Time tramadol Allergy Severe Anaphylaxis Verified 01/22/24 18:08 Exam Narrative: On exam he has catching and l
--- NOTE | 2024-01-27 09:14 | WPDHPUPDATE1 ---
History and Physical Update Update Date/Time: 01/27/24 09:14 History and Physical has been reviewed, including an updated exam of the patient. There are NO changes in the patient's condition. Risks, benefits, and alternatives have been discussed and questions answered. Patient agrees to proceed with procedure.
--- NOTE | 2024-01-27 09:54 | WPDANESEPPF ---
Anes - Initial Pre Proc Eval Procedure: Operation Date: 01/27/24 11:00 Proposed Procedures p Release A-1 Shay, Left Index Trigger Finger Release - Luis A Mazariegos MD Date/Time: 01/27/24 09:54 Surgeon: Luis A Mazariegos MD Pre Op Diagnosis: Left Trigger Index Finger Synd Patient Data Age: 53 Gender: M Height: 1.75 m Weight: 90.72 kg Allergies Allergy/AdvReac Type Severity Reaction Status Date / Time tramadol Allergy Severe Anaphylaxis Verified 01/22/24 18:08 Home Medications Medication Instructions Recorded Confirmed Type atorvastatin 10 mg tablet 10 mg PO DAILY 06/04/19 01/22/24 History metformin 1,000 mg tablet 1,000 mg PO BID 06/04/19 01/22/24 History blood sugar diagnostic (OneTouch 10/24/20 12/31/23 History Ultra Blue Test Strip) baclofen 10 mg tablet 10 mg PO DAILY 04/22/23 01/22/24 History diclofenac sodium 75 mg 75 mg PO BID 04/22/23 01/22/24 History tablet,delayed release gabapentin 600 mg tablet 600 mg PO DAILY 04/22/23 01/22/24 History pregabalin 150 mg capsule 150 mg PO BID 04/22/23 01/22/24 History docusate sodium 100 mg capsule 100 mg PO DAILY PRN constipation 01/22/24 01/22/24 History yidkxmnh-bqhthjso-bqgkz acid 400 1 tablet PO DAILY 01/22/24 01/22/24 History mcg-vit K 20 mcg-lycop 300 mcg tablet vitamin E 268 mg (400 unit) capsule 268 mg PO DAILY 01/22/24 01/22/24 History Patient hx anesthesia problems: none Family hx anesthesia problems: none Results Review: All pre-operative results and documents have been reviewed as part of the pre-operative evaluation. [facility] Past Medical History Medical History Anxiety DMII (diabetes mellitus, type 2) Ganglion cyst of dorsum of right wrist GERD (gastroesophageal reflux disease) HLD (hyperlipidemia) Inguinal hernia of left side without obstruction or gangrene Inguinal hernia of right side without obstruction or gangrene Peripheral neuropathy Rheumatic heart valve regurgitation Urticaria Surgical History Surgical History H/O arthroscopy of left knee H/O right inguinal hernia repair History of ear surgery Right side; tympanic membrane History of hand surgery right trigger finger- 3rd digit left trigger finger- 3rd digit History of surgical removal of ganglion cyst History of tonsillectomy Hx of excision of mass Excision of left buttock subcutaneous mass and excision of external hemorrhoid with associated perianal skin tag on 04/08/23 SAW Family History Family History Mother Diabetes mellitus Colon cancer Hypertension Hyperlipemia Father Diabetes mellitus Dementia Hypertension Sibling Colon cancer Malignant neoplasm of prostate Diabetes mellitus Social History Social History (Updated 12/31/23 @ 11:48 by Delisa Lunsford [facility]) Social History: Patient lives at home with his , Cinda Simeon, whom he designates as his surrogate medical decision maker. He also lives with his grandson at home. His PCP is Dr. Cadena. He wishes to be a Full code Smoking status: Never smoker Tobacco type: cigars Second hand tobacco smoke exposure: No Smoking end date: 06/17/18 Alcohol intake: current Drinks per week: 5 Alcohol use details: Socially Substance use: never Substance use type: does not use Do You Feel Safe in your Home?: Yes Lack of Transportation: No Lack of Food: Never True Current Housing: I Have Housing Concerned About Future Housing: No Difficulty Paying Gas/Electric Bills: No Difficulty Paying for Meds: No Currently Unemployed: No Education: High School Diploma/GED Difficulty w/ Childcare or Family Care: No Living arrangements: with friend(s) Occupation/Education: unemployed Additional occupation/education comments: Patient takes care of his grandch
[2024-01-27 10:15] VITALS: BP 126/81; PULSE 95; RESP 14; TEMP 36.3; O2SAT 96
[2024-01-27] MEDS: LACTATED RINGERS 1,000 ML 30 ML IV CONT (10:15)
[2024-01-27] MEDS: KETOROLAC 15 MG/ML VIAL (*BKC) IV PUSH (10:15)
[2024-01-27] MEDS: ACETAMINOPHEN 500 MG TABLET 1000 MG PO (10:15)
[2024-01-27 10:25] LABS: Anion Gap 13 mmol/L (4-12); Blood Urea Nitrogen 12 mg/dL (9-20); Calcium 8.9 mg/dL (8.4-10.2); Carbon Dioxide 24 mmol/L (22-30); Chloride 104 mmol/L (98-107); Estimated CRCL calculation 64 ml/min; Estimated Glomerular Filt Rate > 60; Glucose 89 mg/dL (65-110); Potassium 4.1 mmol/L (3.4-5.0); Sodium 141 mmol/L (137-145)
[2024-01-27] MEDS: LIDOCAINE HCL 1% LOCAL INJ 20 ML VIAL 10 ML INFILTRATE (10:31)
[2024-01-27] MEDS: ceFAZolin 2 GM/D5W 50 ML 2 GM/50 ML BAG IVPB (10:45)
--- NOTE | 2024-01-27 11:12 | W.PM.PROC2 ---
Procedure Note - Detailed Date of Procedure 01/27/24 Pre-op Diagnosis Left Trigger Index Finger Synd Post-op Diagnosis Same Procedure Performed Release A1 Lindsay Surgeon Luis A Mazariegos MD Wellness Trainer Sushma Johnson Anesthesia MAC Indications Pain and catching Description of Procedure Patient brought to operating room #8. A general anesthetic was administered, using sedation. Local incision made after sterile prep and drape transversely in the distal palmar crease. Dissection carried sharply through the skin and then bluntly to the tendon protecting the neurovascular bundles. The A1 lindsay was identified and split under direct vision. Full excursion of the tendon was noted without any locking or catching. The wounds irrigated, hemostasis obtained, and closed with 3-0 Prolene. Sterile dressing applied. The patient tolerated procedure well. Estimated Blood Loss 5 Complications No immediate complications Condition Stable Disposition PACU [facility] Billing Surgery - Charge Forward: Surgery Billing (15539 Trigger Finger Left 2nd)
[2024-01-27 11:18] VITALS: BP 99/81; PULSE 88; RESP 16; O2SAT 94
[2024-01-27 11:45] VITALS: BP 110/73; PULSE 79; RESP 16; O2SAT 100
[2024-01-27 11:45] LABS: Glucose Point of Care 72 mg/dl (65-105)
--- NOTE | 2024-01-27 11:59 | SUR.PHASEII ---
Per patient, he has taken oxycodone in the past with no allergic reaction.
[2024-01-27] MEDS: oxyCODONE HCL (*CRX) 5 MG TAB IR PO (12:03)
[2024-01-27 12:15] VITALS: BP 124/89; PULSE 85; RESP 16
[2024-01-27 12:30] VITALS: BP 117/73; PULSE 66; RESP 16
== END 2024-01-27 12:38 | disposition home or self-care (01) ==
PROVIDERS: Anesthesiology; PCP Internal Medicine Infectious Disease; Visit Provider Orthopaedic Surgery
PROC: (CPT 26055; principal; 2024-01-27 11:00)
DX: M65.322 Trigger finger, left index finger (principal); E78.5 Hyperlipidemia, unspecified; E11.9 Type 2 diabetes mellitus without complications; F41.9 Anxiety disorder, unspecified; K21.9 Gastro-esophageal reflux disease without esophagitis; G62.9 Polyneuropathy, unspecified; E66.9 Obesity, unspecified; Z68.28 Body mass index [BMI] 28.0-28.9, adult; Z79.84 Long term (current) use of oral hypoglycemic drugs; Z98.890 Other specified postprocedural states; Z86.79 Personal history of other diseases of the circulatory system; Z80.0 Family history of malignant neoplasm of digestive organs; Z80.42 Family history of malignant neoplasm of prostate
CPT/HCPCS: 26055; 36415; 80048; 82948; A9270; J0690; J1885; J2250; J2704; J3010; J7120

== ENCOUNTER 2024-12-22 15:09 | Outpatient (CLI) | payer OTHER, SELFPAY ==
--- NOTE | ~2024-12-22 | US_ITS ---
TESTICULAR ULTRASOUND (Doppler ultrasound interrogation techniques used as needed for this exam.) Ordering provider: GILLIAN Adams History: . rt varicocele . Comparison: None. FINDINGS: TESTICLES: Normal in size. The right measures 3.1x 2.4x 2.2 cm and the left measures 2.5x 1.8x 2.2 cm . Normal echogenicity bilaterally without mass lesion. Normal Doppler flow bilaterally. Few microcalcifications are seen in the right testicle. Follow-up advised. EPIDIDYMIDES: Normal in size. The right measures 1 cm and the left 1.1 cm. Normal echogenicity bilate rally. , 2 2 cystic areas are seen in the left epididymis with the largest measures 0.3 x 0.3 cm. nor mal Doppler flow bilaterally. HYDROCELE: Bilateral small. VARICOCELE: None. The right vein measures 2.8 mm. The left measures 2.1 mm. OTHER ABNORMALITY: None seen. IMPRESSION: Few microcalcifications in the right testicle. Follow-up advised. Bilateral small hydrocele. 2 left epididymal cysts. Otherwise, normal testicular ultrasound. Reviewed, dictated and finalized at location A.
--- NOTE | ~2024-12-22 | US_ITS ---
EXAM: RENAL ULTRASOUND HISTORY: rt varicocele COMPARISON: Reference is made to CT examination of the abdomen and pelvis performed 10/25/2022 FINDINGS: RIGHT KIDNEY: 10.6 x 5.4 x 6.3 cm. Well-circumscribed anechoic avascular focus within the upper pole of the right kidney measuring 8 x 6 x 7 mm which no further follow-up is needed. The remainder of the parenchyma of the right kidney is otherwise unremarkable in echogenicity and marquita iber. No hydronephrosis or bulky renal calculi. LEFT KIDNEY: 11.3 x 6.5 x 7.3 cm No hydronephrosis or renal calculi. The parenchyma of the left kidney is unremarkable in echogenicity and caliber. BLADDER: The bladder is unremarkable. Bilateral ureteral jets are visualized. IMPRESSION: No hydronephrosis or renal calculi. Simple cyst within the right kidney for which no further follow-up is needed. No sonographic evidence of renal mass consistent with previous contrast-enhanced CT examination dated 10/25/2022 Reviewed, dictated and finalized at location A. IMPRESSION: No hydronephrosis or renal calculi. Simple cyst within the right kidney for which no further follow-up is needed. No sonographic evidence of renal mass consistent with previous contrast-enhance d CT examination dated 10/25/2022
--- OUTSIDE RECORDS SUMMARY | 2024-12-22 15:16 | XMS_ITS | Clinical Summary ---
Author Organization [facility] [employer] Address [address] [place] [address] Care Team Providers Care Fire Tender Name Role Phone Tammi Quezada MD Primary Care Provider [phone] Source Comments [facility] [employer],non-owned Affiliates and Associated Physician Practices is amultiple site organization consisting of ambulatory clinics and hospital sitesin [place], [place], [place] and [place]. This disclosure is being madepursuant to the Care Everywhere program and may not contain all information available regarding this patient. Last updated 18.[employer] Allergies Active Allergy Reactions Criticality Noted Date Comments Tramadol Anaphylaxis High 12/02/2018 Medications * Be aware that medications may not be up to date on this document. Alwaysverify current medications with the patient. ALPRAZolam (XANAX) 0.25 MG tablet TK 1 T PO BEFORE MEALS AND HS PRN 1 9 Active Alcohol Swabs (PHARMACIST CHOICE ALCOHOL) USE TO TEST BLOOD SUGAR LEVELS THREE (3) TIMES DAILY 9 Active atorvastatin (LIPITOR) 10 MG tablet TK 1 T PO QD AT DINNER FOR 30 DAYS 6 9 Active baclofen (LIORESAL) 10 MG tablet TK 1 T PO TID 1 9 Active fenofibrate (LOFIBRA) 160 MG tablet TK 1 T PO QD WITH DINNER 9 Active PHARMACIST CHOICE NO CODING test strip USE TO TEST BLOOD SUGAR LEVELS THREE (3) TIMES DAILY 9 Active PHARMACIST CHOICE ALCOHOL 70 % PADS USE TO TEST BLOOD SUGAR LEVELS THREE (3) TIMES DAILY 9 Active ADVOCATE LANCETS MISC USE TO TEST BLOOD SUGAR LEVELS THREE (3) TIMES DAILY 11 9 Active metFORMIN (GLUCOPHAGE) 1000 MG tablet TK 1 T PO BID AROUND THE CLOCK 6 9 Active amitriptyline (ELAVIL) 50 MG tablet Take 1 (one) tablet by mouth 3 times daily Active ezetimibe (ZETIA) 10 MG tablet ezetimibe 10 mg tablet TAKE 1 TABLET BY MOUTH EVERY DAY AT DINNER Active fluticasone propionate (FLONASE) 50 MCG/ACT nasal spray fluticasone propionate 50 mcg/actuation nasal spray,suspension SHAKE LIQUID AND USE 1 SPRAY IN EACH NOSTRIL EVERY DAY NEEDED Active empagliflozin (Jardiance) 10 MG tablet Take 1 (one) tablet by mouth once daily Active Active Problems Problem Noted Date Diagnosed Date Sciatica 08/04/2019 Pain in left knee 06/01/2015 Immunizations Immunization Administration Dates Next Due [employer] primary monoval ent 12+ yr 0.3mL Purple cap 04/22/2021,10/08/2020,09/15/2020 INFLUENZA VACCINE 04/22/2021 Family History Medical History Relation Name Comments Brain Tumor Brother Alzheimer's Disease Father Diabetes - Type 2 Father CVA Mother Cancer - Colon Mother Hypertension Mother Kidney Disease Mother Sleep Disorder - Other Sister Dea DIVYA o n CPAP Relation Name Status Comments Brother Alive Father Mother Sister Eda Alive Social History Tobacco Use Types Packs/Day Years Used Date Smoking Tobacco: Former Cigars Q uit: 04/24/2019 Smokeless Tobacco: Never Tobacco Cessation:Counseling Given: Not Answered Alcohol Use Standard Drinks/Week Comments Yes 0 (1 standard drink = 0.6 oz pur e alcohol) weekend Sex and Gender Information Value Date Recorded Sex Assigned at Not on file Legal Sex Male 5:33 PM [employer] Gender Identity Not on file Sexual Orientation Not on file 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 file Not on file Not on file Last Filed Vital Signs Vital Sign Reading Time Taken Comments Blood Pressure 125/75 12/05/2023 9:45 AM CDT Pulse 78 12/05/2023 9:45 AM CDT Temperature 36.6 C (97.8 F) 08/04/2019 1:33 PM [employer]ARM [employer] Respiratory Rate 17 12/05/2023 9:45 AM CDT Oxygen Saturation 95% 12/05/2023 9:45 AM CDT Inhaled Oxygen Concentration - - Weight 89.8 kg (198 lb) 12/05/2023 8:44 AM CDT Height 175.3 cm (5' 9) 12/05/2023 8:44 AM CDT Body Mass Index 29.24 12/05/2023 8:44 AM CDT Plan of Treatment Health Maintenance Due Date Last Done Comments COLOGUARD (AGES 45-75) - COL ON CA SCREENING 1970 COLON MONITORING 1970 COLONOSCOPY - COLON CA SCREENING 1970 CT COLONOGRAPHY - COLON CA SCREENING 1970 Colorectal Cancer Screening 1970 FIT - COLON CA SCREENING 1970 FLEX SIG - COLON CA SCREENING 1970 HIV SCREENING 1985 HEPATITIS C SCREENING 12/07/1988 DTAP/TDAP/TD VACCINES (1 - Tdap) 1989 HEPATITIS B VACCINE (1 of 3 - 19+ 3-dose series) 1989 PNEUMOCOCCAL VACCINE 50+ (1 of 1 - PCV) 2020 ZOSTER VACCINE (1 of 2) 2020 COVID-19 VACCINE (4 - 2023-2 5 season) 2024 04/22/2021, 10/08/2020, 09/15/2020 DEPRESSION SCREENING 06/17/2024 INFLUENZA VACCINE (Season Ended) 2025 04/22/2021 HIB VACCINE Aged Out No longer eligi ble based on patient's age to complete this topic HPV VACCINE Aged Out No longer eligi ble based on patient's age to complete this topic MENINGOCOCCAL (Group B) VACCINE SHARED DECISION-MAKING Aged Out No longer eligible based on patient's age to complete this topic MENINGOCOCCAL GROUPS A/C/Y/W VACCINE Aged Out No longer eligible b ased on patient's age to complete this topic Goals Goal Patient Goal Type Associated Problems Recent Progress Patient-Stated? Author Mobility General No Nadia Mcgill, RN Note: Expected end date: 11/03/2019 The goal is to maintain or improve your mobility at the optimum level for you. Interventions: Insurance [facility] * Guarantor: FREEMAN LESLIE Account Type Relation to Patient Date of Phone Billing Address Personal/Family 1970 [facility] Member Subscriber Plan / Payer (Ef fective for All Dates) Name:Freeman Leslie Relation to Subscriber:Self Name:FREEMAN LESLIE Payer ID:[id number] (NAIC) Group ID:Not on file Type:Medicaid Managed Care Address: [facility] CLAIMS DEPARTMENT [address] Member Subscriber Plan / Payer (Ef fective for All Dates) Name:Freeman Leslie Relation to Subscriber:Self Name:FREEMAN LESLIE Payer ID:[id number] (NAIC) Group ID:Not on file Type:Medicaid Managed Care Address: [facility] CLAIMS DEPARTMENT [address] Member Subscriber Plan / Payer (Ef fective for All Dates) Name:Freeman Leslie Relation to Subscriber:Self Name:FREEMAN LESLIE Payer ID:[id number] (NAIC) Group ID:Not on file Type:Medicaid Managed Care Address: [facility] CLAIMS DEPARTMENT [address] Member Subscriber Plan / Payer (Ef fective for All Dates) Name:Freeman Leslie Relation to Subscriber:Self Name:FREEMAN LESLIE Payer ID:[id number] (NAIC) Group ID:Not on file Type:Medicaid Managed Care Address: [facility] CLAIMS DEPARTMENT [address], [address] [facility] Member Subscriber Plan / Payer (Ef fective for All Dates) Name:Freeman Leslie Relation to Subscriber:Self Name:FREEMAN LESLIE Payer ID:[id number] (NAIC) Group ID:Not on file Type:Medicaid Managed Care Address: [facility] CLAIMS DEPARTMENT [address], [address] [facility] Member Subscriber Plan / Payer (Ef fective for All Dates) Name:Freeman Leslie Relation to Subscriber:Self Name:FREEMAN LESLIE Payer ID:[id number] (NAIC) Group ID:Not on file Type:Medicaid Managed Care Address: [facility] CLAIMS DEPARTMENT [address], [address] [facility] Member Subscriber Plan / Payer (Ef fective for All Dates) Name:Freeman Leslie Relation to Subscriber:Self Name:FREEMAN LESLIE Payer ID:[id number] (NAIC) Group ID:Not on file Type:Medicaid Managed Care Address: [facility] CLAIMS DEPARTMENT [address], [address] [facility] Member Subscriber Plan / Payer (Ef fective for All Dates) Name:Freeman Leslie Relation to Subscriber:Self Name:FREEMAN LESLIE Payer ID:[id number] (NAIC) Group ID:Not on file Type:Medicaid Managed Care Address: [facility] CLAIMS DEPARTMENT [address], [address] [facility] Member Subscriber Plan / Payer (Ef fective for All Dates) Name:Mariama Freeman Relation to Subscriber:Self Name:MARIAMAFREEMAN Payer ID:[id number] (NAIC) Group ID:Not on file Type:Medicaid Managed Care Address: ATT CLAIMS DEPARTMENT [address], [address] Member Subscriber Plan / Payer (Ef fective for All Dates) Name:Freeman Leslie Relation to Subscriber:Self Name:MARIAMAFREEMAN Payer ID:[id number] (NAIC) Group ID:Not on file Type:Medicaid Managed Care Address: ATT CLAIMS DEPARTMENT [address], [address] Member Subscriber Plan / Payer (Ef fective for All Dates) Name:Freeman Leslie Relation to Subscriber:Self Name:MARIAMAFREEMAN Payer ID:[id number] (NAIC) Group ID:Not on file Type:Medicaid Managed Care Address: [facility] CLAIMS DEPARTMENT [address], [address] Member Subscriber Plan / Payer (Ef fective for All Dates) Name:Freeman Leslie Relation to Subscriber:Self Name:FREEMAN LESLIE Payer ID:[id number] (NAIC) Group ID:Not on file Type:Medicaid Managed Care Address: [facility] CLAIMS DEPARTMENT [address], [address] Member Subscriber Plan / Payer (Ef fective for All Dates) Name:Freeman Leslie Relation to Subscriber:Self Name:FREEMAN LESLIE Payer ID:[id number] (NAIC) Group ID:Not on file Type:Medicaid Managed Care Address: [facility]N CLAIMS DEPARTMENT [address] [facility] Member Subscriber Plan / Payer (Ef fective for All Dates) Name:Freeman Leslie Relation to Subscriber:Self Name:FREEMAN LESLIE Payer ID:[id number] (NAIC) Group ID:Not on file Type:Medicaid Managed Care Address: [facility] CLAIMS DEPARTMENT [address] Member Subscriber Plan / Payer (Ef fective for All Dates) Name:Freeman Leslie Relation to Subscriber:Self Name:FREEMAN LESLIE Payer ID:[id number] (NAIC) Group ID:Not on file Type:Medicaid Managed Care Address: [facility] CLAIMS DEPARTMENT [address] Member Subscriber Plan / Payer (Ef fective for All Dates) Name:Freeman Leslie Relation to Subscriber:Self Name:FREEMAN LESLIE Payer ID:[id number] (NAIC) Group ID:Not on file Type:Medicaid Managed Care Address: [facility] CLAIMS DEPARTMENT [address] Member Subscriber Plan / Payer (Ef fective for All Dates) Name:Freeman Leslie Relation to Subscriber:Self Name:FREEMAN LESLIE Payer ID:[id number] (NAIC) Group ID:Not on file Type:Medicaid Managed Care Address: [facility] CLAIMS DEPARTMENT [address] Member Subscriber Plan / Payer (Ef fective for All Dates) Name:Freeman Leslie Relation to Subscriber:Self Name:FREEMAN LESLIE Payer ID:[id number] (NAIC) Group ID:Not on file Type:Medicaid Managed Care Address: [facility] CLAIMS DEPARTMENT [address] [facility] Member Subscriber Plan / Payer (Ef fective for All Dates) Name:LeslieFreeman Relation to Subscriber:Self Name:FREEMAN LESLIE Payer ID:[id number] (NAIC) Group ID:Not on file Type:Medicaid Managed Care Address: ATT CLAIMS DEPARTMENT [address] Member Subscriber Plan / Payer (Ef fective for All Dates) Name:LeslieFreeman Relation to Subscriber:Self Name:LESLIEFREEMAN Payer ID:[id number] (NAIC) Group ID:Not on file Type:Medicaid Managed Care Address: ATTN CLAIMS DEPARTMENT [address] [facility] [address] [facility] Member Subscriber Plan / Payer (Ef fective for All Dates) Name:Freeman Leslie Relation to Subscriber:Self Name:FREEMAN LESLIE Payer ID:[id number] (NAIC) Group ID:Not on file Type:Medicaid Managed Care Address: [facility]N CLAIMS DEPARTMENT [address] [facility] [place] [address] [facility] [place] [address] [facility] [place] [address] [facility] [place] [address] [facility] [place] [address] [facility] [place] [address] [facility] [address] [facility] Member Subscriber Plan / Payer (Ef fective for All Dates) Name:Freeman Leslie Relation to Subscriber:Self Name:MARIAMAFREEMAN Payer ID:[id number] (NAIC) Group ID:Not on file Type:Medicaid Managed Care Address: [facility] CLAIMS DEPARTMENT [address] Member Subscriber Plan / Payer (Ef fective for All Dates) Name:Mariama Freeman Relation to Subscriber:Self Name:FREEMAN LESLIE Payer ID:[id number] (NAIC) Group ID:Not on file Type:Medicaid Managed Care Address: ATTN CLAIMS DEPARTMENT [address] [place] [facility] [place] [address] [facility] [address] Care Teams Fire Tender Relationship Specialty Start Date End Date Tammi Quezada MD [address] [place] [id number] PCP - General 06/01/15
--- OUTSIDE RECORDS SUMMARY | 2024-12-22 15:16 | XMS_ITS | Referral Summary ---
Author Organization [facility] Address [address] [place] [address] Care Team Providers Care Hypo Dipper Name Role Phone Roger Lutz MD Primary Care Provider Sandra Crump MD Unavailable [phone] Madhav Wayne MD Unavailable Miscellaneous, Not In File Unavailable Unava ilable Encounters Date Type Department Care Team Description 11/23/2024 Results Follow-Up [facility] Cardiology [address] [facility] [address] [place] [phone] Treasure Del Rosario MD Transthoracic Echo (TTE) Complete W Doppler/CF 11/19/2024 2:00 PM CDT Ancillary Procedure [facility] Cardiology [address] [address] [place] [phone] Anomalous right coronary artery; DELGADO (dyspnea on exertion) from Last 3 Months Allergies Active Allergy Reactions Criticality Noted Date Comments Tramadol Anaphylaxis High 12/02/2018 Medications baclofen (LIORESAL) 10 mg tablet Take 1 tablet (10 mg total) by mouth 3 (three) times a day 07/09/19 23 Active metFORMIN (GLUCOPHAGE) 1,000 mg tablet Take 1 tablet (1,000 mg total) by mouth 2 (two) times a day 07/14/19 23 Active hydrOXYzine (ATARAX) 25 mg tablet Take 1 tablet (25 mg total) by mouth daily Active lancing device (Advocate Lancing Device) misc TEST 3 TIMES A DAY Active vitamin E 400 unit capsule Take 1 capsule (400 Units total) by mouth Active omega-3 fatty acids-fish oil 300-1,000 mg capsule Take 2 capsules (2 g total) by mouth daily Active multivit with min-folic acid 200 mcg tablet,chewabl e Take by mouth Active acetaminophen 500 mg capsuleIndicat ions:Pain Take 2 capsules (1,000 mg total) by mouth every 6 (six) hours as needed for pain 03/15/20 Active senna-docusate (PERICOLACE) 8.6-50 mgIndications: constipation Take 1 tablet by mouth daily as needed for constipation 30 tablet 03/15/20 24 Active oxyCODONE (ROXICODONE) 5 mg immediate release tabletIndicati ons:Pain Take 1 tablet (5 mg total) by mouth every 4 (four) hours as needed for pain 28 tablet 03/25/20 24 Active Additional Information Patient not taking.Reported on 09/21/2024 docusate sodium (COLACE) 100 mg capsule 09/21/19 25 Active atorvastatin (LIPITOR) 10 mg tablet Take 1 tablet (10 mg total) by mouth daily 90 tablet 3 09/22/19 25 Active Jardiance 10 mg tablet Take 1 tablet (10 mg total) by mouth daily 90 tablet 3 09/22/19 25 Active losartan (COZAAR) 50 mg tablet Take 1 tablet (50 mg total) by mouth daily 90 tablet 3 09/22/19 25 Active metoprolol tartrate (LOPRESSOR) 25 mg immediate release tablet Take 1 tablet (25 mg total) by mouth 2 (two) times a day 180 tablet 3 09/22/19 25 Active aspirin 81 mg enteric coated tabletIndicati ons:Anomalous right coronary artery TAKE 1 TABLET BY MOUTH ONCE DAILY 90 tablet 1 12/11/19 25 Active aspirin 81 mg enteric coated tabletIndicati ons:prevention of thrombosis Take 1 tablet (81 mg total) by mouth daily 30 tablet 1 09/22/19 25 025 Discontinued Active Problems Problem Noted Date Diagnosed Date Hx of heart surgery 09/21/2024 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 Sensorineural hearing loss (SNHL) of both ears 0 07/27/2022 Bilateral chronic otitis media 07/27/2022 Dysfunction of both eustachian tubes 07/27/2022 Ventricular premature depolarization 03/19/2022 Premature atrial contraction 03/19/2022 Diastolic dysfunction 03/19/2022 DELGADO (dyspnea on exertion) 01/29/2022 Palpitations 01/29/2022 Neuropathy 01/29/2022 Diabetic peripheral neuropat hy associated with type 2 diabetes mellitus 10/08/2021 Type 2 diabetes mellitus 03/29/2020 Prolapsed cervical intervertebral disc 0 Sleep apnea 10/16/2019 Sciatica 08/04/2019 Left lumbar radiculopathy 05/12/2018 Chronic low back pain 05/12/2018 Acid reflux 08/26/2017 Benign prostatic hyperplasia 08/26/2017 Social History Tobacco Use Types Packs/Day Years Used Date Smoking Tobacco: Former Cigarettes Passive Smoke Exposure: Past Smokeless Tobacco: Never [facility] Converserities Answer Date Recorded In the past 12 months has th e electric, gas, oil, or water company threatened to shut off services in your home? No 03/12/2024 Social Connection and Isolat ion Panel [NHANES] Answer Date Recorded In a typical week, how many times do you talk on the phone with family, friends, or neighbors? More than three times a week 03/12/2024 How often do you get togethe r with friends or relatives? Once a week 03/12/2024 How often do you attend [facility] or holiness services? Never 03/12/2024 Do you belong to any clubs o r organizations such as congregation groups, unions, fraternal or athletic groups, or school groups? No 03/12/2024 How often do you attend meet ings of the clubs or organizations you belong to? Never 03/12/2024 Are you , , di vorced, , never , or living with a partner? 03/12/2024 AUDIT-C Answer Date Recorded Q1: How often do you have a drink containing alcohol? 2-3 times a week 03/12/2024 Q2: How many drinks containi ng alcohol do you have on a typical day when you are drinking? 5 or 6 Q3: How often do you have si x or more drinks on one occasion? Daily or almost daily 03/12/2024 Overall Financial Resource Strain (CARDIA) Answe r Date Recorded How hard is it for you to pa y for the very basics like food, housing, medical care, and heating? Not very hard 03/12/2024 Hunger Vital Sign Answer Date Recorded Within the past 12 months, y ou worried that your food would run out before you got the money to buy more. Never true 03/12/20 24 Within the past 12 months, t he food you bought just didn't last and you didn't have money to get more. Never true 03/12/2024 PRAPARE - Transportation Answer Date Re corded In the past 12 months, has l ack of transportation kept you from medical appointments or from getting medications? No 02/16 In the past 12 months, has l ack of transportation kept you from meetings, work, or from getting things needed for daily living? No 03/12/2024 Housing Stability Vital Sign Answer David e Recorded In the last 12 months, was t here a time when you were not able to pay the mortgage or rent on time? No 03/12/2024 In the past 12 months, how m any times have you moved where you were living? 0 03/12/2024 At any time in the past 12 m [place], were you homeless or living in a correction (including now)? No 03/12/2024 Personal Safety Answer Date Recorded Have you ever been in or are you currently in a harmful physical or emotional relationship or is someone making you feel afraid or unsafe? 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 Gender Identity Not on file Sexual Orientation Not on file Last Filed Vital Signs Vital Sign Reading Time Taken Comments Blood Pressure 130/82 09/21/2024 2:30 PM CDT Pulse 110 09/21/2024 2:30 PM CDT Temperature 36.6 C (97.8 F) 03/15/2024 8:14 AM CDT Respiratory Rate 16 04/09/2024 12:32 PM CDT Oxygen Saturation 95% 04/09/2024 12:32 PM CDT Inhaled Oxygen Concentration - - Weight 87.1 kg (192 lb) 09/21/2024 2:30 PM CDT Height 175.3 cm (5' 9) 09/21/2024 2:30 PM CDT Body Mass Index 28.35 09/21/2024 2:30 PM CDT Plan of Treatment Not on file Procedures Procedure Name Priority Date/Time Associated Diagnosis Comments TRANSTHORACIC ECHO (TTE) COMPLETE W DOPPLER/CF WO CONTRAST Routine 11/19/2024 2:55 PM CDT Anomalous right coronary artery DELGADO (dyspnea on exertion) POCT LIPID PANEL Routine 09/21/2024 1:06 PM CDT Lipid screening EGFR Routine 03/15/2024 4:06 AM CDT HEMOGLOBIN A1C Routine 02/26/2024 1:14 PM CDT Encounter for preadmission testing from Last 3 Months or Most Recently Relevant to Health Maintenance Results * TRANSTHORACIC ECHO (TTE) COMPLETE W DOPPLER/CF WO CONTRAST (11/19/2024 2:55 PM CDT) Estimated EF 55-60 % CONS SCIMAGE EF Mod BP 57 % CONS SCIMAGE Anatomical Region Laterality Modality Ultrasound 11/19/2024 2:00 PM CDT Narrative 11/19/2024 5:22 PM CDT [facility] Cardiology [address] [facility] [address] [address] [address] [facility] [address], [place] [address] P:[phone] P:[phone] Echocardiographic Report Patient Name: BALDEV LESLIE : 1970 Study Date: 11/19/2024 2:00:28 PM Gender: M Tech: SANTO Location: [place] Ref Provider: TREASURE DEL ROSARIO Height(Cm): 175 BSA: 2.06 Weight(Kg): 87.1 Heart Rate: 87 BP: 130 / 82 Quality: Good Order Provider: TREASURE DEL ROSARIO PROCEDURES: Echocardiographic Report: Transthoracic echocardiogram with complete 2D, M-Mode, and color Doppler examination. With Strain Analysis. INDICATIONS: Q24.5 Malformation of coronary vessels and R06.09 Other forms of dyspnea. MEASUREMENTS: 2D/MM Value Range Doppler Value Range EF Mod BP 57 % [ 52 - 72 ] JONATHAN Vmax 2.78 cm2 [ 2.00 - 4.00 ] Estimated EF 55-60 % AV Mean PG 3 mmHg LVIDd 2D 4.09 cm [ 4.20 - 5.80 ] AV Peak Jeroem 1.17 m/s [ 1.00 - 1.70 ] LVIDs 2D 2.81 cm [ 2.50 - 4.00 ] AV Peak PG 6 mmHg LVPWd 2D 1.16 cm [ 0.60 - 1.00 ] AV VTI 19.98 cm IVSd 2D 1.21 cm [ 0.60 - 1.00 ] LVOT Diam 2.12 cm [ 1.70 - 2.10 ] LA Volume Index 12 cc/m2 [ 16 - 34 ] LVOT Peak Jerome 0.81 m/s [ 0.70 - 1.10 ] LVOT VTI 14.27 cm MV E Peak Jerome 0.39 m/s [ 0.60 - 1.30 ] MV A Peak Jerome 0.55 m/s [ 1.00 - 1.20 ] MV Decel Time 418 msec [ 104 - 258 ] PV Peak Jerome 0.88 m/s [ 0.40 - 0.80 ] TR Peak Jerome 1.97 m/s [ 1.00 - 2.80 ] TR Peak PG 15 mmHg Lateral E` 0.13 m/s [ 0.10 - 0.15 ] E` 0.07 m/s E/E` 3 2D/MM Value Range Doppler Value Range - FINDINGS: Interpretation Site: Exam was interpreted at [facility]. Left Ventricle: Normal left ventricular systolic function. No focal wall motion abnormalities. Normal left ventricular size. Mild concentric left ventricular hypertrophy. Impaired diastolic relaxation Grade I. Ejection fraction is measured at 57 %. Ejection Fraction is visually estimated to be 55-60 %. Global Longitudinal Strain is -13 %. GLS is abnormal. Right Ventricle: Normal right ventricular size. Normal right ventricular systolic function. Left Atrium: The left atrium is normal in size. Right Atrium: The right atrium is normal in size. Atrial Septum: Normal atrial septum. Mitral Valve: Normal appearance of the mitral valve. Mild mitral valve regurgitation. There is no hemodynamically significant mitral stenosis by Doppler. Aortic Valve: Normal appearance of the aortic valve. No evidence of hemodynamically significant aortic stenosis by Doppler. Trileaflet aortic valve. Trace aortic valve regurgitation. Tricuspid Valve: Normal appearance of the tricuspid valve. Normal right ventricular systolic pressure. Estimated peak RVSP is 20 mmHg. Mild tricuspid regurgitation. Pulmonic Valve: Normal appearance of the pulmonic valve. No pulmonic stenosis. Moderate pulmonic regurgitation. Pericardium: Normal pericardium with no significant pericardial effusion. Aorta: Normal aortic root. IVC: Normal size and normal respiratory collapse consistent with normal right atrial pressure (<5 mmHg). CONCLUSIONS: Normal left ventricular systolic function. No focal wall motion abnormalities. Normal left ventricular size. Mild concentric left ventricular hypertrophy. Impaired diastolic relaxation Grade I. Ejection fraction is measured at 57 %. Ejection Fraction is visually estimated to be 55-60 %. Global Longitudinal Strain is -13 %. GLS is abnormal. Mild mitral valve regurgitation. Mild tricuspid regurgitation. Moderate pulmonic regurgitation. Normal sinus rhythm. Electronically Signed By: Júnior Downs MD 11/19/2024 5:22:33 PM CDT Procedure Note Júnior Downs MD - 11/19/2024 [facility] Cardiology [address] [facility] [address] [address] [address] [facility] [address], [place] [address] P:[phone] P:[phone] Echocardiographic Report Patient Name: BALDEV LESLIE : 1970 Study Date: 11/19/2024 2:00:28 PM Gender: M Tech: [facility] Location: [place] Ref Provider: TREASURE DEL ROSARIO Height(Cm): 175 BSA: 2.06 Weight(Kg): 87.1 Heart Rate: 87 BP: 130 / 82 Quality: Good Order Provider: TREASURE DEL ROSARIO PROCEDURES: Echocardiographic Report: Transthoracic echocardiogram with complete 2D, M-Mode, and color Dopplerexamination. With Strain Analysis. INDICATIONS: Q24.5 Malformation of coronary vessels and R06.09 Other forms ofdyspnea. MEASUREMENTS: 2D/MM Value Range Doppler ValueRange EF Mod BP 57 % [ 52 - 72 ] JONATHAN Vmax 2.78cm2 [ 2.00 - 4.00 ] Estimated EF 55-60 % AV Mean PG 3mmHg LVIDd 2D 4.09 cm [ 4.20 - 5.80 ] AV Peak Jerome 1.17m/s [ 1.00 - 1.70 ] LVIDs 2D 2.81 cm [ 2.50 - 4.00 ] AV Peak PG 6mmHg LVPWd 2D 1.16 cm [ 0.60 - 1.00 ] AV VTI 19.98cm IVSd 2D 1.21 cm [ 0.60 - 1.00 ] LVOT Diam 2.12 cm[ 1.70 - 2.10 ] LA Volume Index 12 cc/m2 [ 16 - 34 ] LVOT Peak Jerome 0.81m/s [ 0.70 - 1.10 ] LVOT VTI 14.27 cm MV E Peak Jerome 0.39 m/s [ 0.60 - 1.30 ] MV A Peak Jerome 0.55 m/s [ 1.00 - 1.20 ] MV Decel Time 418 msec [ 104 - 258 ] PV Peak Jerome 0.88 m/s [ 0.40 - 0.80 ] TR Peak Jerome 1.97 m/s [ 1.00 - 2.80 ] TR Peak PG 15 mmHg Lateral E` 0.13 m/s [ 0.10 - 0.15 ] E` 0.07 m/s E/E` 3 2D/MM Value Range Doppler ValueRange - FINDINGS: Interpretation Site: Exam was interpreted at [facility]. Left Ventricle: Normal left ventricular systolic function. No focal wall motionabnormalities. Normal left ventricular size. Mild concentric left ventricular hypertrophy.Impaired diastolic relaxation Grade I. Ejection fraction is measured at 57 %. EjectionFraction is visually estimated to be 55-60 %. Global Longitudinal Strain is -13 %. GLS isabnormal. Right Ventricle: Normal right ventricular size. Normal right ventricular systolicfunction. Left Atrium: The left atrium is normal in size. Right Atrium: The right atrium is normal in size. Atrial Septum: Normal atrial septum. Mitral Valve: Normal appearance of the mitral valve. Mild mitral valve regurgitation.There is no hemodynamically significant mitral stenosis by Doppler. Aortic Valve: Normal appearance of the aortic valve. No evidence of hemodynamicallysignificant aortic stenosis by Doppler. Trileaflet aortic valve. Trace aortic valveregurgitation. Tricuspid Valve: Normal appearance of the tricuspid valve. Normal right ventricularsystolic pressure. Estimated peak RVSP is 20 mmHg. Mild tricuspid regurgitation. Pulmonic Valve: Normal appearance of the pulmonic valve. No pulmonic stenosis. Moderatepulmonic regurgitation. Pericardium: Normal pericardium with no significant pericardial effusion. Aorta: Normal aortic root. IVC: Normal size and normal respiratory collapse consistent with normal rightatrial pressure (<5 mmHg). CONCLUSIONS: Normal left ventricular systolic function. No focal wall motionabnormalities. Normal left ventricular size. Mild concentric left ventricular hypertrophy.Impaired diastolic relaxation Grade I. Ejection fraction is measured at 57 %. EjectionFraction is visually estimated to be 55-60 %. Global Longitudinal Strain is -13 %. GLS isabnormal. Mild mitral valve regurgitation. Mild tricuspid regurgitation. Moderate pulmonic regurgitation. Normal sinus rhythm. Electronically Signed By: Júnior Downs MD 11/19/2024 5:22:33 PM CDT us Treasure Del Rosario MD CV ECHO PROCEDURES F inal Result * POCT lipid panel (09/21/2024 1:06 PM CDT) Cholesterol, POC 117 mg/dL HDL, POC 34 mg/dL Triglycerides, POC 177 mg/dL LDL Cholesterol POC 48 mg/dL Chol/HDL Ratio, POC 1.4 Non-HDL Cholesterol, POC 83 mg/dL Cholesterol Total, POC 117 mg/dL Capillary blood 09/21/2024 1 :06 PM CDT us Treasure Del Rosario MD POINT OF CARE TEST O RDERABLES Final Result * eGFR (03/15/2024 4:06 AM CDT) eGFR 86 >=60 mL/min/1. 73 m2 Comment: Interpretive Data Reference Interval Normal >/= 90 mL/min/1.73m2 Mildly decreased* 60 - 89 mL/min/1.73m2 Mildly to moderately decreased 45 - 59 mL/min/1.73m2 Moderately to severely decreased 30 - 44 mL/min/1.73m2 Severely decreased 15 - 29 mL/min/1.73m2 Kidney Failure < 15 mL/min/1.73m2 *Relative to young adult level Estimated glomerular filtration rate is determined by the 2020 CKD-EPI equation recommended by the National Kidney Foundation (A Unifying Approach to GFR Estimation: Recommendations of the NKF-ASK Task Force on Reassessing the Inclusion of Race in Diagnosing Kidney Disease, JASN 2020). The CKD-EPI equation should not be used for patients with unstable renal function and has not been validated in children and those over 70. Current interpretive data was last reviewed 2021. Blood 03/15/2024 4:06 AM CDT 03/15/2024 4:16 AM CDT us Sandra Crump MD LAB BLOOD ORDERABLES Final Res ult [facility] [id number] [facility] [place] [address] * (ABNORMAL) Hemoglobin A1c (02/26/2024 1:14 PM CDT) Hgb A1C 5.7(H) 4.0 - 5.6 % Estimated Average Glucose 117 mg/dL DOUG GARCIA Comment: The ADA recommends reporting an estimated Average Glucose (eAG) with all Hemoglobin A1c results using the equation derived from a study of 507 normal and diabetic adults. Minority populations were underrepresented and children were not included. (Diabetes Care 31:6446-1671, 2008). The eAG is not equivalent to a fasting glucose. Blood 02/26/2024 1:14 PM CDT 02/26/2024 1:33 PM CDT us Sherri Gutiérrez NP LAB BLOOD ORDERABLES Final Res ult [facility] [id number] [facility] [place] [address] from Last 3 Months or Most Recently Relevant to Health Maintenance Insurance [facility] Advance Directives For more information, please contact: [phone] * Full Code (Latest Code Status on File) Date Activated Date Inactivated Comments 03/11/2024 3:06 PM 03/15/2024 7:06 PM Care Teams Hypo Dipper Relationship Specialty Start Date End Date Roger Lutz MD [address] [address] PCP - General Internal Medicine 02/26/24 [place] [address] [place] [address] Surgeon Cardiothoracic Surgery 03/15/24 [place] [id number] [address] Consulting Physician Cardiovascular Disease 03/15/24 Miscellaneous, Not In File 03/15/24
--- OUTSIDE RECORDS SUMMARY | 2024-12-22 15:16 | XMS_ITS | Encounter Summary ---
Author Organization [facility] Address [address] [place] [address] Care Team Providers Care Sql Data Architect Name Role Phone Roger Lutz MD Primary Care Provider Sandra Crump MD Unavailable [phone] Madhav Wayne MD Unavailable Miscellaneous, Not In File Unavailable Unava ilable Encounter Details Date Type Department Care Team (Latest Contact Info) Description 11/23/2024 Results Follow-Up [facility] Cardiology [address] [phone] John Del Rosario MD [address] [place] [address] Transthoracic Echo (TTE) Complete W Doppler/CF Social History Tobacco Use Types Packs/Day Years Used Date Smoking Tobacco: Former Cigarettes Passive Smoke Exposure: Past Smokeless Tobacco: Never [facility] Utilities Answer Date Recorded In the past 12 months has [employer] electric, gas, oil, or water company threatened [...] week 03/12/2024 How often do you attend [facility] or sabianist services? Never 03/12/2024 Do you belong to any clubs o r organizations such as sabianism groups, unions, fraternal or athletic groups, or [...] time in the past 12 m [place], were you homeless or living in a usp (including now)? No 03/12/2024 Personal Safety Answer Date Recorded Have you ever been in or are you currently in a harmful physical or emotional relationship or is someone making you feel afraid or unsafe? 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 Gender Identity Not on file Sexual Orientation Not on file documented as of this encounter Plan of Treatment Not on file documented as of this encounter Visit Diagnoses Not on filedocumented in this encounter Care Teams Sql Data Architect Relationship Specialty [place] [address] [place] [address] PCP - General Internal Medicine 02/26/24 [place] [address] [place] [address] Surgeon Cardiothoracic Surgery 03/15/24 [place] [address] [address] Consulting Physician Cardiovascular Disease 03/15/24 Miscellaneous, Not In File 03/15/24 documented as of this encounter
--- OUTSIDE RECORDS SUMMARY | 2024-12-22 15:16 | XMS_ITS | Clinical Summary ---
Author Organization [facility] Address [facility] [place] [address] Care Team Providers Care Payroll Tax Specialist Name Role Phone Roger Lutz MD Primary Care Provider Sandra Crump MD Unavailable [phone] Madhav Wayne MD Unavailable Miscellaneous, Not In File Unavailable Unava ilable Allergies Active Allergy Reactions Criticality Noted Date [...] (six) hours as needed for pain 03/15/20 24 Active senna-docusate (PERICOLACE) 8.6-50 mgIndications: constipation Take [...] Acid reflux 08/26/2017 Benign prostatic hyperplasia 08/26/2017 Encounters Date Type Department Care Team Description 11/23/2024 Results Follow-Up [facility] Card[facility] [address] [facility] [address] [place] [address] Treasure Del Rosario MD Transthoracic Echo (TTE) Complete W Doppler/CF 11/19/2024 2:00 PM CDT Ancillary Procedure [facility] Cardiology [address] [place] [address] Anomalous right coronary artery; DELGADO (dyspnea on exertion) from Last 3 Months Surgical History Surgery Date Site/Laterality Comments HERNIA REPAIR TRIGGER FINGER RELEASE right x1, left x2 ANTERIOR CRUCIATE LIGAMENT REPAIR Left WRIST GANGLION EXCISION Right KNEE ARTHROSCOPY Left TONSILLECTOMY EAR SURGERY Right hole in ear repair x3 Medical History Medical History Date Comments Arthritis Sleep apnea Hyperlipidemia Hypertension Type 2 diabetes mellitus (HCC) Family History Medical History Relation Name Comments Developmental delay Father Heart disease Father Stroke Father Cancer Mother Developmental delay Mother Heart disease Mother Stroke Mother Relation Name Status Comments Father Mother Social History Tobacco Use Types Packs/Day Years Used Date Smoking Tobacco: Former Cigarettes Passive Smoke Exposure: Past Smokeless Tobacco: Never [facility] Utilities Answer Date Recorded In the past 12 months has [employer] electric, gas, oil, or water company threatened [...] week 03/12/2024 How often do you attend chur ch or taoist services? Never 03/12/2024 Do you belong to any clubs o r organizations such as nondenominational groups, unions, fraternal or athletic groups, or [...] any time in the past 12 m [facility], were you homeless or living in a halfway (including now)? No 03/12/2024 Personal Safety Answer Date Recorded Have you ever been in or are you currently in a harmful physical or emotional relationship or is someone making you feel afraid or unsafe? 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 Gender Identity Not on file Sexual Orientation Not on file Obstetrics History Last Filed Vital Signs Vital Sign Reading [...] 09/21/2024 2:30 PM CDT Plan of Treatment Health Maintenance Due Date Last Done Comments Albumin Creatinine Ratio, Urine 1970 Colon Cancer Screening-Colonoscopy 1970 Depression Screening 1970 Hepatitis C Screening 1970 Prostate Cancer Screening-PSA 1970 Dilated Eye Exam 1970 Foot Exam 1970 DTaP/Tdap/Td Vaccine (1 - Tdap) 1981 Hepatitis B Screening 1988 Regular Well Visit/Exam 18-64 1988 Pneumococcal vaccine <65 (1 of 2 - PCV) 1989 Zoster Vaccine (1 of 2) 2020 Covid-19 Vaccine (4 - 2023-2 5 season) 2024 04/22/2021, 10/08/2020, 09/15/2020 Hemoglobin A1C 08/25/2024 02/26/2024 Influenza Vaccine (#1) 2025 , 05/01/2019, 03/11/2018 eGFR 03/15/2025 03/15/2024, 02/16, 03/13/2024, Additional history exists Lipid Panel 09/21/2025 09/21/2024, 03/13/2024 Procedures Procedure Name Priority Date/Time Associated Diagnosis [...] PM CDT Narrative 11/19/2024 5:22 PM CDT [facility] Cardiology [address] [facility] [address] [address] [address] [facility] [address], [place] [address] P:[phone] P:[phone] Echocardiographic Report Patient Name: BALDEV LESLIE : 1970 Study Date: 11/19/2024 2:00:28 PM Gender: M Tech: DLS Location: [place] Ref Provider: TREASURE DEL ROSARIO Height(Cm): 175 [...] 4.20 - 5.80 ] AV Peak Jerome 1.17 m/s [ 1.00 - 1.70 ] [...] FINDINGS: Interpretation Site: Exam was interpreted at [facility]. Left Ventricle: Normal left ventricular systolic function. [...] Procedure Note Júnior Downs MD - 11/19/2024 [facility] Cardiology [address] [facility] [address] [id number] [address] [facility] [address] [place], [place] [address] P:[phone] P:[phone] Echocardiographic Report Patient Name: BALDEV LESLIE : 1970 Study Date: 11/19/2024 2:00:28 PM Gender: M Tech: [facility] Location: [facility] Provider: TREASURE DEL ROSARIO Height(Cm): 175 BSA: [...] FINDINGS: Interpretation Site: Exam was interpreted at [facility]. Left Ventricle: Normal left ventricular systolic function. [...] POCT lipid panel (09/21/2024 1:06 PM CDT) Pathologist [facility] Cholesterol, POC 117 mg/dL HDL, POC 34 mg/dL Triglycerides, POC 177 mg/dL LDL Cholesterol POC 48 mg/dL Chol/HDL Ratio, POC 1.4 Non-HDL Cholesterol, POC 83 mg/dL Cholesterol Total, POC 117 mg/dL Capillary blood 09/21/2024 1 :06 PM CDT us Treasure Del Rosario MD POINT OF CARE TEST O RDERABLES Final Result * eGFR (03/15/2024 4:06 AM CDT) Pathologist [facility] eGFR 86 >=60 mL/min/1. 73 m2 Comment: [...] 4:06 AM CDT 03/15/2024 4:16 AM CDT Sandra Crump MD LAB BLOOD ORDERABLES Final Res ult Performing Organization Address City/[facility] Co de Phone Number DOUG GARCIA [id number] [place] [address] * (ABNORMAL) Hemoglobin A1c (02/26/2024 1:14 PM CDT) Hgb A1C 5.7(H) 4.0 - 5.6 % Estimated Average Glucose 117 mg/dL DOUG GARCIA Comment: The ADA recommends reporting an estimated Average Glucose (eAG) with all Hemoglobin A1c results using the equation derived from a study of 507 normal and diabetic adults. Minority populations were underrepresented and children were not included. (Diabetes Care 31:5145-1820, 2008). The eAG is not equivalent to a fasting glucose. Blood 02/26/2024 1:14 PM CDT 02/26/2024 1:33 PM CDT Sherri Gutiérrez NP LAB BLOOD ORDERABLES Final Res ult Performing Organization Address City/[facility]/ZIP Co de Phone Number DOUG GARCIA [phone] Department [place] [employer] [address] from Last 3 Months or Most Recently Relevant to Health Maintenance Insurance [facility] Advance Directives For more information, please contact: [phone] * Full Code (Latest Code Status on File) Date Activated Date Inactivated Comments 03/11/2024 3:06 PM 03/15/2024 7:06 PM Care Teams Payroll Tax Specialist Relationship Specialty Start Date End Date Roger Lutz MD [address] [place] [id number] PCP - General Internal Medicine 02/26/24 Sandra Crump MD [address] [address] Surgeon Cardiothoracic Surgery 03/15/24 [place] [id number] [address] Consulting Physician Cardiovascular Disease 03/15/24 Miscellaneous, Not In File 03/15/24
--- OUTSIDE RECORDS SUMMARY | 2024-12-22 15:16 | XMS_ITS | Clinical Summary ---
Author Organization [facility] Address [address] [place] [address] Phone Care Team Providers Care Jai Alai Player Name Role Phone Tammi Quezada MD Primary Care Provider [phone] Inocente Aguila APRN, MARKETING DATABASE ANALYST Unavailable [phone] Allergies Active Allergy Reactions Criticality Noted Date Comments Tramadol Anaphylaxis,Other (see Comments) High tramadol Medications fenofibrate 160 MG Tablet fenofibrate 160 mg tablet Take 1 tablet every day by oral route at dinner for 30 days. Active atorvastatin (LIPITOR) 10 MG Tablet atorvastatin 10 mg tablet Active metFORMIN (GLUCOPHAGE) 500 MG Tablet metformin 500 mg tablet Active methocarbamol (ROBAXIN) 500 MG Tablet Take 1 tablet in the evening as needed. May increase to twice daily as tolerated. 60 Tab 8 Active baclofen (LIORESAL) 10 MG Tablet TAKE 1 TABLET BY MOUTH THREE TIMES DAILY NEEDED 9 Active docusate sodium 100 MG Capsule TAKE 1 CAPSULE BY MOUTH EVERY DAY DIRECTED FOR CONSTIPATION 5 Active losartan (COZAAR) 50 MG Tablet Take 50 mg by mouth daily. Active metoprolol tartrate (LOPRESSOR) 25 MG Tablet 5 Active tamsulosin (FLOMAX) 0.4 MG CapsuleIndicati ons:Benign prostatic hyperplasia with weak urinary stream Take 1 Capsule by mouth daily. 30 Capsule 1 5 Active Active Problems Problem Noted Date Diagnosed Date Hearing disorder 05/13/2018 Injury of knee 05/13/2018 Blood pressure elevated without history of HTN 1 07/13/2017 Chronic otitis media 05/12/2018 Chronic low back pain 05/12/2018 Benign prostatic hyperplasia 05/12/2018 Left lumbar radiculopathy 05/12/2018 Pain in left knee 06/01/2015 Encounters Date Type Department Care Team Description 11/24/2024 1:45 PM CDT Office Visit [facility] [address] [place] [address] Inocente Aguila, CREDIT COORDINATOR, MARKETING DATABASE ANALYST Right varicocele (Primary Dx); Benign prostatic hyperplasia with weak urinary stream Discharge Disposition: Discharged to home or Selfcare 11/24/2024 Travel from Last 3 Months Family History Medical History Relation Name Comments Cancer Brother Diabetes Father Heart Attack Father Cancer Mother Diabetes Mother Stroke Mother Relation Name Status Comments Brother Father Mother Social History Tobacco Use Types Packs/Day Years Used Date Smoking Tobacco: Never Smokeless Tobacco: Never Tobacco Cessation:Counseling Given: Not Answered AUDIT-C Answer Date Recorded Q1: How often do you have a drink containing alc ohol? 2-3 times a week 11/24/2024 Average Number of Drinks Not on file 025 Frequency of Binge Drinking Not on file 11/15 Sex and Gender Information Value Date Recorded Sex Assigned at Not on file Legal Sex Male 2:49 PM CDT Gender Identity Not on file Sexual Orientation Not on file Last Filed Vital Signs Vital Sign Reading Time Taken Comments Blood Pressure 108/77 11/24/2024 1:59 PM CDT Pulse 105 11/24/2024 1:59 PM CDT Temperature 36.3 C (97.4 F) 05/12/2018 1:37 PM HEALTH SYSTEMS ANALYST Respiratory Rate 18 11/24/2024 1:59 PM CDT Oxygen Saturation 98% 11/24/2024 1:59 PM CDT Inhaled Oxygen Concentration - - Weight 85.3 kg (188 lb) 11/24/2024 1:59 PM CDT Height 175.3 cm (5' 9) 11/24/2024 1:59 PM CDT Body Mass Index 27.76 11/24/2024 1:59 PM CDT Plan of Treatment Health Maintenance Due Date Last Done Comments Hepatitis C Virus (HCV) Screening 1970 TdaP Immunization 1970 Hepatitis B Immunization (1 of 3 - 19+ 3-dose series) 1989 Cologuard 12/13/2015 Colonoscopy 12/13/2015 Colorectal Cancer Screening 12/13/2015 Immunochemical Fecal Occult Blood 12/13/2015 Zoster Immunization (1 of 2) 2020 SARS-COV-2 Immunization ( season) 2024 04/22/2021, 10/08/2020, 09/15/2020 Influenza Immunization (Season Ended) 2025 06/14/2022, 04/22/2021, 05/01/2019, Additional history exists Respiratory Syncytial Virus (RSV) Immunization (Adult) (1 - 1-dose 75+ series) 2045 Pneumococcal Immunization (50+ years) Completed 07/23/2024 Pneumococcal Immunization Combined Discontinued 07/23/2024 Human Papillomavirus (HPV) Immunization Aged Out No longer eligible based on patient's age to complete this topic Meningococcal Immunization (ACWY) Aged Out No longer eligible based on patient's age to complete this topic Rotavirus Immunization Aged Out No lo nger eligible based on patient's age to complete this topic Procedures Procedure Name Priority Date/Time Associated Diagnosis Comments POCT UA AUTOMATED W/O MICRO Routine 11/24/2024 2:07 PM CDT Right varicocele from Last 3 Months Results * (ABNORMAL) POCT UA AUTOMATED W/O MICRO (11/24/2024 2:07 PM CDT) POC UA SPECIFIC GRAVITY 1.010 URINE PH 5.0 5.0 - 9.0 POC URINE LEUKOCYTES Negative Negative Zak/uL POC URINE NITRITE Negative Negative POC URINE PROTEIN Trace(A) Negative mg/dL POC URINE GLUCOSE >1000 mg/dL(A) Negative, Norm mg/dL POC URINE KETONE Negative Negative mg/dL POC URINE UROBILINOGEN Norm Norm, 0.2 E.U./dL (mg/dL), 1 E.U./dL (mg/dL) POC URINE BILIRUBIN Negative Negative mg/dL POC URINE BLOOD INSTRUMENT Negative Negative Ryan/uL POC URINE COLOR Yellow POC URINE CLARITY Clear 11/24/2024 2:07 PM CDT Inocente Aguila APRN, PHILIPP POINT OF CARE TESTING (MANUAL) Final Result from Last 3 Months Insurance MEDICAID [employer] Care Teams Jai Alai Player Relationship Specialty Start Date End Date Tammi Quezada MD [address] [place] [id number] PCP - General Geriatric Medicine 03/13/18 Inocente Aguila APRN, PHILIPP [address] [place] [address] Nurse Practitioner Advanced Practice Nurse 11/20/24
== END 2024-12-22 15:10 | disposition home or self-care (01) ==
PROVIDERS: PCP Internal Medicine Infectious Disease; Visit Provider Nurse Practitioner
DX: I86.1 Scrotal varices (principal); N50.3 Cyst of epididymis; N43.3 Hydrocele, unspecified; N28.1 Cyst of kidney, acquired
CPT/HCPCS: 76775; 76870; 93976

== ENCOUNTER 2024-12-28 14:32 | Outpatient (CLI) | payer OTHER, SELFPAY ==
--- OUTSIDE RECORDS SUMMARY | 2024-12-28 14:37 | XMS_ITS | Clinical Summary ---
Author Organization [facility] Address [address] [place] [address] Care Team Providers Care Armature And Rotor Winder Name Role Phone Tammi Quezada MD Primary Care Provider [phone] Source Comments [facility],non-owned Affiliates and Associated Physician Practices is amultiple site organization consisting of ambulatory clinics and hospital sitesin [place], [place], [place] and [place]. This disclosure is being madepursuant to the Care Everywhere program and may not contain all information available regarding this patient. Last updated 18.[facility] Allergies Active Allergy Reactions Criticality Noted Date [...] 06/01/2015 Immunizations Immunization Administration Dates Next Due Red Ambiental primary monoval ent 12+ yr 0.3mL Purple cap 04/22/2021,10/08/2020,09/15/2020 INFLUENZA VACCINE 04/22/2021 Family History Medical History Relation Name Comments Brain Tumor Brother Alzheimer's Disease Father Diabetes - Type 2 Father CVA Mother Cancer - Colon Mother Hypertension Mother Kidney Disease Mother Sleep Disorder - Other Sister Dea DIVYA o n CPAP Relation Name Status Comments Brother Alive Father Mother Sister Dea Alive Social History Tobacco Use Types Packs/Day Years Used Date Smoking Tobacco: Former Cigars Q uit: 04/24/2019 Smokeless Tobacco: Never Tobacco Cessation:Counseling Given: Not Answered Alcohol Use Standard Drinks/Week Comments Yes 0 (1 standard drink = 0.6 oz pur e alcohol) weekend Sex and Gender Information Value Date Recorded Sex Assigned at Not on file Legal Sex Male 5:33 PM CHIROPRACTIC DOCTOR Gender Identity Not on file Sexual Orientation Not on file 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 Interventions: Insurance [facility] * Guarantor: FREEMAN LESLIE Account Type Relation to Patient Date of Phone Billing Address Personal/Family 1970 [facility] Member Subscriber Plan / Payer (Ef fective for All Dates) Name:Freeman Leslie Relation to Subscriber:Self Name:FREEMAN LESLIE Payer ID:[id number] (NAIC) Group ID:Not on file Type:Medicaid Managed Care Address: [facility] CLAIMS DEPARTMENT [address] Member Subscriber Plan / Payer (Ef fective for All Dates) Name:Freeman Leslie Relation to Subscriber:Self Name:FREEMAN LESLIE Payer ID:[id number] (NAIC) Group ID:Not on file Type:Medicaid Managed Care Address: [facility] CLAIMS DEPARTMENT [address] Member Subscriber Plan / Payer (Ef fective for All Dates) Name:Freeman Leslie Relation to Subscriber:Self Name:FREEMAN LESLIE Payer ID:[id number] (NAIC) Group ID:Not on file Type:Medicaid Managed Care Address: [facility] CLAIMS DEPARTMENT [address] Member Subscriber Plan / Payer (Ef fective for All Dates) Name:Freeman Leslie Relation to Subscriber:Self Name:FREEMAN LESLIE Payer ID:[id number] (NAIC) Group ID:Not on file Type:Medicaid Managed Care Address: ATTN CLAIMS DEPARTMENT [address], [address] [facility] Member Subscriber Plan / Payer (Ef fective for All Dates) Name:Freeman Leslie Relation to Subscriber:Self Name:FREEMAN LESLIE Payer ID:[id number] (NAIC) Group ID:Not on file Type:Medicaid Managed Care Address: ATTN CLAIMS DEPARTMENT [address], [address] [facility] Member Subscriber Plan / Payer (Ef fective for All Dates) Name:Freeman Leslie Relation to Subscriber:Self Name:FREEMAN LESLIE Payer ID:[id number] (NAIC) Group ID:Not on file Type:Medicaid Managed Care Address: ATTN CLAIMS DEPARTMENT [address], [address] [facility] Member Subscriber Plan / Payer (Ef fective for All Dates) Name:Freeman Leslie Relation to Subscriber:Self Name:FREEMAN LESLIE Payer ID:[id number] (NAIC) Group ID:Not on file Type:Medicaid Managed Care Address: ATTN CLAIMS DEPARTMENT [address], [address] [facility] Member Subscriber Plan / Payer (Ef fective for All Dates) Name:Freeman Leslie Relation to Subscriber:Self Name:FREEMAN LESLIE Payer ID:[id number] (NAIC) Group ID:Not on file Type:Medicaid Managed Care Address: ATTN CLAIMS DEPARTMENT [address], [address] [facility] Member Subscriber Plan / Payer (Ef fective for All Dates) Name:Mariama Freeman Relation to Subscriber:Self Name:MARIAMAFREEMAN Payer ID:[id number] (NAIC) Group ID:Not on file Type:Medicaid Managed Care Address: ATT CLAIMS DEPARTMENT [address], [address] Member Subscriber Plan / Payer (Ef fective for All Dates) Name:Freeman Leslie Relation to Subscriber:Self Name:MARIAMAFREEMAN Payer ID:[id number] (NAIC) Group ID:Not on file Type:Medicaid Managed Care Address: ATT CLAIMS DEPARTMENT [address], [address] Member Subscriber Plan / Payer (Ef fective for All Dates) Name:Freeman Leslie Relation to Subscriber:Self Name:MARIAMAFREEMAN Payer ID:[id number] (NAIC) Group ID:Not on file Type:Medicaid Managed Care Address: [facility] CLAIMS DEPARTMENT [address], [address] Member Subscriber Plan / Payer (Ef fective for All Dates) Name:Freeman Leslie Relation to Subscriber:Self Name:FREEMAN LESLIE Payer ID:[id number] (NAIC) Group ID:Not on file Type:Medicaid Managed Care Address: ATTN CLAIMS DEPARTMENT [address], [address] Member Subscriber Plan / Payer (Ef fective for All Dates) Name:Freeman Leslie Relation to Subscriber:Self Name:FREEMAN LESLIE Payer ID:[id number] (NAIC) Group ID:Not on file Type:Medicaid Managed Care Address: ATTN CLAIMS DEPARTMENT [address] [facility] Member Subscriber Plan / Payer (Ef fective for All Dates) Name:Freeman Leslie Relation to Subscriber:Self Name:FREEMAN LESLIE Payer ID:[id number] (NAIC) Group ID:Not on file Type:Medicaid Managed Care Address: [facility] CLAIMS DEPARTMENT [address] Member Subscriber Plan / Payer (Ef fective for All Dates) Name:Freeman Leslie Relation to Subscriber:Self Name:FREEMAN LESLIE Payer ID:[id number] (NAIC) Group ID:Not on file Type:Medicaid Managed Care Address: [facility] CLAIMS DEPARTMENT [address] Member Subscriber Plan / Payer (Ef fective for All Dates) Name:Freeman Leslie Relation to Subscriber:Self Name:FREEMAN LESLIE Payer ID:[id number] (NAIC) Group ID:Not on file Type:Medicaid Managed Care Address: [facility] CLAIMS DEPARTMENT [address] Member Subscriber Plan / Payer (Ef fective for All Dates) Name:Freeman Leslie Relation to Subscriber:Self Name:FREEMAN LESLIE Payer ID:[id number] (NAIC) Group ID:Not on file Type:Medicaid Managed Care Address: [facility] CLAIMS DEPARTMENT [address] Member Subscriber Plan / Payer (Ef fective for All Dates) Name:Freeman Leslie Relation to Subscriber:Self Name:FREEMAN LESLIE Payer ID:[id number] (NAIC) Group ID:Not on file Type:Medicaid Managed Care Address: ATTN CLAIMS DEPARTMENT [address] [facility] Member Subscriber Plan / Payer (Ef fective for All Dates) Name:LeslieFreeman Relation to Subscriber:Self Name:FREEMAN LESLIE Payer ID:[id number] (NAIC) Group ID:Not on file Type:Medicaid Managed Care Address: ATT CLAIMS DEPARTMENT [address] Member Subscriber Plan / Payer (Ef fective for All Dates) Name:LeslieFreeman Relation to Subscriber:Self Name:LESLIEFREEMAN Payer ID:[id number] (NAIC) Group ID:Not on file Type:Medicaid Managed Care Address: ATTN CLAIMS DEPARTMENT [address] HEALTH PLAN [facility] [address] HEALTH PLAN [facility] PL[facility] HEALTH PLAN [facility] HEALTH PLAN [facility] HE[facility] PLAN [facility] HEALTH PLAN [facility] Member Subscriber Plan / Payer (Ef fective for All Dates) Name:Freeman Leslie Relation to Subscriber:Self Name:FREEMAN LESLIE Payer ID:[id number] (NAIC) Group ID:Not on file Type:Medicaid Managed Care Address: ATTN CLAIMS DEPARTMENT [address] [facility] [place] [address] [facility] [place] [address] [facility] HEALTH PLAN [facility] [place] [address] HEALTH PLAN [facility] [place] [address] [facility] [place] [address] [facility] [place] [address] HEALTH PLAN [facility] HEALTH PLAN [facility] HEALTH PLAN [facility] [place] [address] [facility] Member Subscriber Plan / Payer (Ef fective for All Dates) Name:Freeman Leslie Relation to Subscriber:Self Name:MARIAMAFREEMAN Payer ID:[id number] (NAIC) Group ID:Not on file Type:Medicaid Managed Care Address: ATTN CLAIMS DEPARTMENT [address] Member Subscriber Plan / Payer (Ef fective for All Dates) Name:Mariama Freeman Relation to Subscriber:Self Name:FREEMAN LESLIE Payer ID:[id number] (NAIC) Group ID:Not on file Type:Medicaid Managed Care Address: ATTN CLAIMS DEPARTMENT [address] [place] [facility] [place] [address] [facility] HEALTH PLAN [facility] HEALTH PLAN [facility] HEALTH PLAN [facility] HEALTH PLAN [facility] HEALTH PLAN [facility] [address] Care Teams Armature And Rotor Winder Relationship Specialty Start Date End Date Tammi Quezada MD [address] [place] [address] PCP - General 06/01/15
--- OUTSIDE RECORDS SUMMARY | 2024-12-28 14:37 | XMS_ITS | Clinical Summary ---
Author Organization [facility] Address [address] [place] [address] Phone Care Team Providers Care Web Development Manager Name Role Phone Tammi Quezada MD Primary Care Provider [phone] Inocente Aguila APRN, DEPUTY HARBORMASTER Unavailable Allergies Active Allergy Reactions Criticality Noted Date [...] Description 11/24/2024 1:45 PM CDT Office Visit [facility] [address] [place] [address] Inocente Aguila, QUALITY AND RELIABILITY ENGINEER, DEPUTY HARBORMASTER Right varicocele (Primary Dx); Benign prostatic hyperplasia [...] 36.3 C (97.4 F) 05/12/2018 1:37 PM OIL EXPERT Respiratory Rate 18 11/24/2024 1:59 PM CDT [...] season) 2024 04/22/2021, 10/08/2020, 09/15/2020 Influenza Immunization (#1) 2025 12/2 02/2022, 04/22/2021, 05/01/2019, Additional history exists Respiratory Syncytial [...] 11/24/2024 2:07 PM CDT Inocente Aguila APRN, CNP POINT OF CARE TESTING (MANUAL) Final Result from Last 3 Months Insurance MEDICAID [facility] Care Teams Web Development Manager Relationship Specialty Start Date End Date Tammi Quezada MD [address] [place] [address] PCP - General Geriatric Medicine 03/13/18 Inocente Aguila APRN, PHILIPP [address] [place] [address] Nurse Practitioner Advanced Practice Nurse 11/20/24
--- OUTSIDE RECORDS SUMMARY | 2024-12-28 14:37 | XMS_ITS | Clinical Summary ---
Author Organization [facility] Address [facility] [place] [address] Care Team Providers Care Ear Mold Laboratory Technician Name Role Phone Roger Lutz MD Primary Care Provider Sandra Crump MD Unavailable [phone] Madhav Wayne MD Unavailable Miscellaneous, Not [...] Department Care Team Description 11/23/2024 Results Follow-Up [facility] Cardiology [address] [facility] [address] [address] Treasure Del Rosario MD Transthoracic Echo (TTE) Complete W Doppler/CF 11/19/2024 2:00 PM CDT Ancillary Procedure [facility] Cardiology [address] [place] [address] Anomalous right coronary artery; DELGADO [...] Passive Smoke Exposure: Past Smokeless Tobacco: Never [facility] Utilities Answer Date Recorded In the past 12 months has [employer] electric, gas, oil, or water company threatened [...] often do you attend chur ch or sabianism services? Never 03/12/2024 Do you belong to any clubs o r organizations such as buddhism groups, unions, fraternal or athletic groups, or [...] any time in the past 12 m [facility], were you homeless or living in a halfway (including now)? No 03/12/2024 Personal Safety Answer Date Recorded Have you ever been in or are you currently in a harmful physical or emotional relationship or is someone making you feel afraid or unsafe? 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 Gender Identity Not on file Sexual Orientation [...] PM CDT Narrative 11/19/2024 5:22 PM CDT [facility] Cardiology [address] [facility] [address], [place] [address] [address] [facility] [address], [place] [address] P:[phone] P:[phone] Echocardiographic Report Patient Name: BALDEV LESLIE : 1970 Study Date: 11/19/2024 2:00:28 PM Gender: M Tech: DLS Location: [place] Ref Provider: TREASURE DEL ROSARIO Height(Cm): 175 BSA: 2.06 Weight(Kg): 87.1 Heart Rate: 87 BP: 130 / 82 Quality: Good Order Provider: TREASURE DEL ROSAROI PROCEDURES: Echocardiographic Report: Transthoracic echocardiogram with complete [...] Site: Exam was interpreted at [facility]. Left Ventricle: Normal left ventricular systolic [...] Procedure Note Júnior Downs MD - 11/19/2024 [facility] Cardiology [address] [facility] [address] [id number] [address] [facility] [address], [place], [place] [address] P:[phone] P:[phone] Echocardiographic Report Patient Name: BALDEV LESLIE : 1970 Study Date: 11/19/2024 2:00:28 PM Gender: M Tech: [facility] Location: [facility] Provider: TREASURE DEL ROSARIO Height(Cm): 175 BSA: [...] Site: Exam was interpreted at [facility]. Left Ventricle: Normal left ventricular systolic [...] lipid panel (09/21/2024 1:06 PM CDT) Pathologist [facility] Cholesterol, POC 117 mg/dL HDL, POC 34 mg/dL Triglycerides, POC 177 mg/dL LDL Cholesterol POC 48 mg/dL Chol/HDL Ratio, POC 1.4 Non-HDL Cholesterol, POC 83 mg/dL Cholesterol Total, POC 117 mg/dL Capillary blood 09/21/2024 1 :06 PM CDT us Treasure Del Rosario MD POINT OF CARE TEST O RDERABLES Final Result * eGFR (03/15/2024 4:06 AM CDT) Pathologist [facility] eGFR 86 >=60 mL/min/1. 73 m2 Comment: [...] ORDERABLES Final Res ult Performing Organization Address City/[facility] Co de Phone Number DOUG GARCIA [address] [place] [address] * (ABNORMAL) Hemoglobin A1c (02/26/2024 1:14 PM CDT) Hgb A1C 5.7(H) 4.0 - 5.6 % Estimated Average Glucose 117 mg/dL DOUG GARCIA Comment: The ADA recommends reporting an estimated Average Glucose (eAG) with all Hemoglobin A1c results using the equation derived from a study of 507 normal and diabetic adults. Minority populations were underrepresented and children were not included. (Diabetes Care 31:9851-2584, 2008). The eAG is not equivalent to a fasting glucose. Blood 02/26/2024 1:14 PM CDT 02/26/2024 1:33 PM CDT Sherri Gutiérrez NP LAB BLOOD ORDERABLES Final Res ult Performing Organization Address City/[facility]/ZIP Co de Phone Number DOUG GARCIA [address] [place] [address] from Last 3 Months or Most Recently Relevant to Health Maintenance Insurance [facility] Advance Directives For more information, please contact: [phone] * Full Code (Latest Code Status on File) Date Activated Date Inactivated Comments 03/11/2024 3:06 PM 03/15/2024 7:06 PM Care Teams Ear Mold Laboratory Technician Relationship Specialty Start Date End Date Roger Lutz MD [address] [place] [address] PCP - General Internal Medicine 02/26/24 Sandra Crump MD [address] [address] Surgeon Cardiothoracic Surgery 03/15/24 [place] [address] [address] Consulting Physician Cardiovascular Disease 03/15/24 Miscellaneous, Not In File 03/15/24
--- OUTSIDE RECORDS SUMMARY | 2024-12-28 14:37 | XMS_ITS | Referral Summary ---
Author Organization [facility] Address [address] [place] [address] Care Team Providers Care Loader Helper Sorting Yard Name Role Phone Roger Lutz MD Primary Care Provider Sandra Crump MD Unavailable [phone] Madhav Wayne MD Unavailable Miscellaneous, Not In File Unavailable Unava ilable Encounters Date Type Department Care Team Description 11/23/2024 Results Follow-Up [facility] Cardiology [address] [facility] [address] [place] [address] Treasure Del Rosario MD Transthoracic Echo (TTE) Complete W Doppler/CF 11/19/2024 2:00 PM CDT Ancillary Procedure [facility] Cardiology [address] [place] [address] [place] [address] Anomalous right coronary artery; DELGADO (dyspnea [...] Passive Smoke Exposure: Past Smokeless Tobacco: Never [facility] [employer] Answer Date Recorded In the past 12 [...] week 03/12/2024 How often do you attend [facility] ch or evangelical services? Never 03/12/2024 Do you belong to any clubs o r organizations such as confucianism groups, unions, fraternal or athletic groups, or [...] any time in the past 12 m [facility], were you homeless or living in a fpc (including now)? No 03/12/2024 Personal Safety Answer Date Recorded Have you ever been in or are you currently in a harmful physical or emotional relationship or is someone making you feel afraid or unsafe? 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 Gender Identity Not on file Sexual Orientation [...] PM CDT Narrative 11/19/2024 5:22 PM CDT [facility] Cardiology [address] [facility] [address], [place] [address] [address] [facility] [address] [address] P:[phone] P:[phone] Echocardiographic Report Patient Name: BALDEV LESLIE : 1970 Study Date: 11/19/2024 2:00:28 PM Gender: M Tech: SANTO Location: [place] Ref Provider: TREASURE DEL ROSARIO Height(Cm): 175 [...] [ 16 - 34 ] LVOT Peak Jeroem 0.81 m/s [ 0.70 - 1.10 ] [...] Site: Exam was interpreted at [facility]. Left Ventricle: Normal left ventricular systolic function. [...] Procedure Note Júnior Downs MD - 11/19/2024 [facility] Cardiology [address] [facility] [address], [place] [address] [address] [facility] [address] [place] [address] P:[phone] P:[phone] Echocardiographic Report Patient Name: BALDEV LESLIE : 1970 Study Date: 11/19/2024 2:00:28 PM Gender: M Tech: [facility] Location: [place] Ref Provider: TREASURE DEL ROSARIO Height(Cm): 175 [...] Site: Exam was interpreted at [facility]. Left Ventricle: Normal left ventricular systolic function. [...] MD LAB BLOOD ORDERABLES Final Res ult DUOG GARCIA [address] Department [place] [address] * (ABNORMAL) Hemoglobin A1c (02/26/2024 1:14 PM CDT) Hgb A1C 5.7(H) 4.0 - 5.6 % Estimated Average Glucose 117 mg/dL DOUG GARCIA Comment: The ADA recommends reporting an estimated Average Glucose (eAG) with all Hemoglobin A1c results using the equation derived from a study of 507 normal and diabetic adults. Minority populations were underrepresented and children were not included. (Diabetes Care 31:9679-7679, 2008). The eAG is not equivalent to a fasting glucose. Blood 02/26/2024 1:14 PM CDT 02/26/2024 1:33 PM CDT us Sherri Gutiérrez NP LAB BLOOD ORDERABLES Final Res ult DOUG GARCIA [address] Department [place] [address] from Last 3 Months or Most Recently Relevant to Health Maintenance Insurance [facility] Advance Directives For more information, please contact: [phone] * Full Code (Latest Code Status on File) Date Activated Date Inactivated Comments 03/11/2024 3:06 PM 03/15/2024 7:06 PM Care Teams Loader Helper Sorting Yard Relationship Specialty Start Date End Date Roger Lutz MD [address] [address] PCP - General Internal Medicine 02/26/24 [place] [address] [place] [address] Surgeon Cardiothoracic Surgery 03/15/24 [place] [address] [address] Consulting Physician Cardiovascular Disease 03/15/24 Miscellaneous, Not In File 03/15/24
--- OUTSIDE RECORDS SUMMARY | 2024-12-28 14:37 | XMS_ITS | Encounter Summary ---
Author Organization [facility] Healthcare Address [address] [place] [address] Care Team Providers Care Catering Associate Name Role Phone Roger Lutz MD Primary Care Provider Sandra Crump MD Unavailable [phone] Madhav Wayne MD Unavailable Miscellaneous, Not In File Unavailable Unava ilable Encounter Details Date Type Department Care Team (Latest Contact Info) Description 11/23/2024 Results Follow-Up [facility] Cardiology [address] [id number] John Del Rosario MD [address] [place] [id number] Transthoracic Echo (TTE) Complete W Doppler/CF Social History Tobacco Use Types Packs/Day Years Used Date Smoking Tobacco: Former Cigarettes Passive Smoke Exposure: Past Smokeless Tobacco: Never [facility] Utilities Answer Date Recorded In the past 12 months has [employer], gas, oil, or water company threatened [...] week 03/12/2024 How often do you attend [facility] or ep[facility] services? Never 03/12/2024 Do you belong to any clubs o r organizations such as latter day groups, unions, fraternal or athletic groups, or [...] any time in the past 12 m [facility], were you homeless or living in a prison (including now)? No 03/12/2024 Personal Safety Answer Date Recorded Have you ever been in or are you currently in a harmful physical or emotional relationship or is someone making you feel afraid or unsafe? Denies 03/11/2024 Sex and Gender Information Value Date Recorded Sex Assigned at Not on file Legal Sex Male 12:50 PM [employer] Gender Identity Not on file Sexual Orientation Not on file documented as of this encounter Plan of Treatment Not on file documented as of this encounter Visit Diagnoses Not on filedocumented in this encounter Care Teams Catering Associate Relationship Specialty [place] [address] [place] [id number] PCP - General Internal Medicine 02/26/24 [place] [address] [place] [id number] Surgeon Cardiothoracic Surgery 03/15/24 [place] [address] [address] Consulting Physician Cardiovascular Disease 03/15/24 Miscellaneous, Not In File 03/15/24 documented as of this encounter
== END 2024-12-28 14:33 | disposition home or self-care (01) ==
LOC: ANHAUDIO 14:32
PROVIDERS: PCP Internal Medicine Infectious Disease; Visit Provider Otolaryngology
DX: H90.71 Mixed conductive and sensorineural hearing loss, unilateral, right ear, with unrestricted hearing on the contralateral side (principal)
CPT/HCPCS: 92557; 92567